=== PATIENT | male | born 1985 | race Caucasian/White ===

== ENCOUNTER 2016-11-27 22:53 | Emergency (ER) | payer BC ==
[~2016-11-27] VITALS: Ht 167.6 cm; Wt 133.4 kg
[~2016-11-27 22:53] MED LIST: AMOX500C2 PO; BREX1TAB PO; CARB100T6 PO; CEPH-507 PO; CEPH500C PO; CYCL10TA9 PO; FAMO20TA5 PO; HYDR-3781 PO; HYDR28CR10 TP; IBP200T PO; IBUP-15 PO; LISD30CA3 PO; LTRS15C TOP; MECL25TA56 PO; NAPR-243 PO; NAPR500T PO; RISP0.5T3 PO; SULF1TAB35 PO; TOPI50TA13 PO; TRM50T PO
--- OUTSIDE RECORDS SUMMARY | 2016-11-27 22:57 | XMS REPORT | Continuity of Care Document ---
Author Author [facility] Organization [facility] Address Unknown Phone Unavailable Care Team Providers Care Delivery Specialist Name Role Phone [facility] OF PCP Insurance Providers Payer Name Policy Number Subscriber Name Relationship Self Pay Melanie Cordero 18 Self / Same As Patient Advance Directives Directive Response Recorded Date/Time Advance Directives No 12/07/14 8:01pm Health Care Power of Line O Scribe Operator No 12/07/14 8:01pm Resuscitation Status Full Code 12/07/14 8:01pm Problems Medical Problems Problem Onset Date Status Abdominal wall pain Unknown Active Chest pain Unknown Active Nausea and vomiting Unknown Active Contusion of both lungs Unknown Active Contusion of rib on left side Unknown Active Abrasion Unknown Active Gastritis Unknown Active Medications Medication Dose Route Sig Days/Qty Instructions Order Date Discontinued Date Status Ibuprofen 4 Tab PO NEEDED 05/17/09 05/07/10 Discontinued Ibuprofen 4 Tab PO NEEDED 05/07/10 12/09/10 Discontinued Cephalexin Monohydrate (Keflex) 1 Each PO FOUR TIMES DAILY 30 Qty 06/0707/31/11 Discontinued Hydrocortisone/Oatmeal/Aloe/E 28.4 Gm TP TWICE A DAY 5 Days 03/20/11 07/31/11 Discontinued Tramadol HCl 50 Mg PO EVERY 8HRS 20 Qty 07/31/11 08/07/13 Discontinued Amoxicillin 1 Each PO THREE TIMES A DAY 30 Qty 02/01/14 05/24/14 Discontinued Naproxen 1 Each PO TWICE A DAY PRN PAIN 20 Qty FOR PAIN 02/01/14 Discontinued Betamethasone/Clotrimazole 0 TOP TWICE A DAY 10 Days 02/01/14 Discontinued Famotidine (Pepcid) 1 Each PO TWICE A DAY 10 Days 12/07/14 Active Social History Social History Problem Response Recorded Date/Time Alcohol Use Occasionally Uses 12/07/2014 8:01pm Recreational Drug Use No 12/07/2014 8:01pm Recent Foreign Travel No 05/24/2014 10:25pm Recent Infectious Disease Exposure No 05/24/2014 10:25pm Hospitalization with Isolation Denies 12/07/2014 7:54pm Smoking Status Never a Smoker 12/07/2014 8:01pm Query Response Start Date Stop Date Smoking Status Never a Smoker Hospital Discharge Instructions No hospital discharge instructions. Plan of Care No plan of care. Functional Status No functional status results. Allergies, Adverse Reactions, Alerts Allergen Type Severity Reaction Status Last Updated NKANo Known Allergies Allergy Mild Active 03/14/09 Immunizations No immunization records. Vital Signs Acute Vital Signs Vital Response Date/Time Temperature (Fahrenheit) 97.8 degrees F (97.6 - 99.5) Temperature (Calculated Celsius) 36.80849 degrees C (36.4 - 37.5) Temperature Source Temporal Pulse Rate (adult) 103 bpm (60 - 90) Respiratory Rate 20 bpm (12 - 24) O2 Sat by Pulse Oximetry 99 % (88 - 100) Blood Pressure 177/99 mm Hg Pain Pain Intensity 8 Height (Feet) 5 feet Height (Inches) 5 inches Height (Calculated Centimeters) 165.589989 cm Weight (Pounds) 265 pounds Weight (Calculated Kilograms) 120.958269 kilograms Calculated BMI 44.09 Results No known relevant diagnostic tests, laboratory data and/or discharge summary. Procedures No known history of procedures. Encounters Encounter Location Date/Time Departed Emergency Room [facility] 12/07/14 7:51pm Recent Diagnosis
[2016-11-27] MEDS ORDERED: AMOX-358 PO (23:13)
[2016-11-27] MEDS ORDERED: FLUT9.9S NS (23:13)
[2016-11-27] MEDS ORDERED: BENZ-13 PO (23:13)
--- NOTE | 2016-11-27 23:14 | ED Cough/URI ---
General Chief Complaint: Cough/Cold/Flu Symptoms Stated Complaint: HEADACHE/CONGESTION/SORE THROAT Nursing Triage Note: PT TO ED 5 W/ FRIEND FOR C/O SNEEZING, SINUS PRESSURE, TRIPP ONSET X1 WK. 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 IN THIS ER A FEW HOURS AGO WITH SAME--LIVES WITH THEM PT IS HERE FOR WORK NOTE--MISSED WORK TODAY--SUPPOSED TO BE AT WORK TODAY AT 3: 00 PM-11:00 PM PCP: LD Allergies and Home Medications Allergies Coded Allergies: GURPREETANo Known Allergies (Unverified Allergy, Mild, 03/14/09) Home Medications Amoxicillin/Potassium Clav 1 Each Tablet #20 1 EACH PO BID Prescribed by: NAEL JEFF on 11/27/162312 Benzonatate 100 Mg Capsule #30 1-2 TAB PO TID Prescribed by: NAEL JEFF on 11/27/162312 Brexpiprazole 1 Mg Tablet #30 1 MG PO DAILY (Reported) Carbamazepine 100 Mg Tab.chew #90 100 MG PO TID (Reported) Cephalexin 500 Mg Capsule #21 500 MG PO TID Prescribed by: KELL BRITT on 06/12/162028 Fluticasone Propionate 9.9 Ml [place].susp #1 2 SPRAYS NS BID Prescribed by: NAEL JEFF on 11/27/162312 Hydroxyzine Pamoate 25 Mg Capsule #90 25 MG PO TID (Reported) Lisdexamfetamine Dimesylate 30 Mg Capsule #30 30 MG PO DAILY (Reported) Risperidone 0.5 Mg Tablet #30 0.5 MG PO HS (Reported) Sulfamethoxazole/Trimethoprim 1 Each Tablet #14 1 EACH PO BID Prescribed by: KELL BRITT on 06/12/162028 Topiramate 50 Mg Tablet #60 50 MG PO UD (Reported) TAKE WITH BREAKFAST AND LUNCH Constitutional: see HPI fever EENTM: nose congestion see HPI throat pain Respiratory: see HPI coughNo short of breath Cardiovascular: no symptoms reported Gastrointestinal: no symptoms reported Genitourinary: no symptoms reported Musculoskeletal: see HPI Skin: no symptoms reported Psychiatric/Neurological: See HPI Headache Hematologic/Lymphatic: No Symptoms Reported Immunological/Allergic: no symptoms reported Past Wxxfwsz-Cjdnwz-Bkbltf Hx Patient Social History Alcohol Use: Denies Use Recreational Drug Use: No Smoking Status: Never a Smoker Recent Foreign Travel: No Contact w/Someone Who Travel: No Recent Infectious Disease Expo: No Recent Hopitalizations: No Immunizations Up To Date Tetanus Booster (TDap): Less than 5yrs Date of Influenza Vaccine: Jun 07, 2016 Seasonal Allergies Seasonal Allergies: Yes Surgeries HX Surgeries: No Respiratory Hx Respiratory Disorders: No Cardiovascular Hx Cardiac Disorders: No Neurological Hx Neurological Disorders: Yes (SEIZURES A CHILD) Reproductive System Hx Reproductive Disorders: No Genitourinary Hx Genitourinary Disorders: No Gastrointestinal Hx Gastrointestinal Disorders: No Musculoskeletal Hx Musculoskeletal Disorders: No Endocrine Hx Endocrine Disorders: No HEENT HX ENT Disorders: No Cancer Hx Cancer: No Psychosocial Hx Psychiatric Problems: Yes (EXTENSIVE PSYCH ISSUES) Behavioral Health Disorders: ADD/ADHD, Anxiety, Bipolar, Depression Integumentary HX Skin/Integumentary Disorder: No Blood Transfusions Hx Blood Disorders: No Family Medical History Significant Family History: Heart Disease, Cancer Physical Exam Vital Signs Vital Sign - Last 12Hours 11/27/16 22:56 Temp 99.2 Pulse 82 Resp 20 B/P 146/80 Pulse Ox 99 O2 Delivery Room Air Capillary Refill : Less Than 3 Seconds General Appearance: WD/WN no apparent distress obese HEENT: PERRL/EOMI pharyngeal erythemaNo tonsillar exudate, other (NASAL MUCOSAL EDEMA AND CLEAR RHINORRHEA. 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 no motor/sensory deficits alert normal mood/affect oriented x 3 Skin: normal color warm/dry Progress/Results/Core Measures Results/Orders My Orders Orders-NAEL JEFF DO Amoxicillin/Clavulanate Tablet (Augmenti (11/28/16 07:00) Benzonatate Capsule (Tessalon Perles) (11/27/16 23:15) Amoxicillin/Clavulanate Tablet (Augmenti (11/27/16 23:15) Vital Signs/I&O Vital Sign - Last 12Hours 11/27/16 11/27/16 22:56 22:56 Temp 99.2 Pulse 82 Resp 20 B/P 146/80 Pulse Ox 99 O2 Delivery Room Air Room Air Blood Pressure Mean: 102 Departure Impression Impression: Primary Impression: Upper respiratory infection Additional Impression: Pharyngitis Disposition: HOME, SELF-CARE Condition: Stable Departure-Patient Inst. Referrals: NO,LOCAL PHYSICIAN (PCP) Primary Care Physician [facility] Patient Instructions: Bacterial Upper Respiratory Infection, Adult (DC), Sore Throat, Adult (DC) Add. Discharge Instructions: TYLENOL 1 GRAM / MOTRIN 800 MG 4 TIMES A DAY FOR PAIN OR FEVER LOTS OF CLEAR LIQUIDS FOLLOW UP WITH [facility] IN 4-5 DAYS IF NO BETTER All discharge instructions reviewed with patient and/or family. Voiced understanding. Scripts Benzonatate (Tessalon Perle)100 Mg Capsule1-2 Tab PO TID Cough #30 CAP Prov:NAEL JEFF DO 11/27/16 Fluticasone Propionate (Flonase Allergy Relief)9.9 Ml [place].susp2 Sprays NS BID #1 SPRAY Prov:NAEL JEFF DO 11/27/16 Amoxicillin/Potassium Clav (Augmentin 875-125 Tablet)1 Each Tablet1 Each PO BID INFECTION #20 TAB Prov:NAEL JEFF DO 11/27/16 Work/School Note: Work Release Form Date Seen in the Emergency Department: Nov 27, 2016 NAEL JEFF DO Nov 27, 2016 23:14
[2016-11-27] MEDS ORDERED: BENZONATATE 100 MG (TESSALON) CAPSULE PO SCH (23:15)
[2016-11-27] MEDS ORDERED: AUGMENTIN 875 MG TAB (AMOXICILLIN/CLAVULANATE) ONE (23:15)
[2016-11-27 23:19] VITALS: BP 0/0
[2016-11-28] MEDS ORDERED: AUGMENTIN 875 MG TAB (AMOXICILLIN/CLAVULANATE) PO SCH (07:00)
== END 2016-11-27 23:19 | disposition home or self-care (01) ==
LOC: EDUNIT# 22:53 → ER 22:54
DX: J06.9 Acute upper respiratory infection, unspecified (principal)
CPT/HCPCS: 99282

== ENCOUNTER 2016-12-21 22:25 | Emergency (ER) | payer BC ==
[~2016-12-21] VITALS: Ht 167.6 cm; Wt 133.4 kg
[~2016-12-21 22:25] MED LIST changes: +AMOX-358 PO; +BENZ-13 PO; +FLUT9.9S NS
[2016-12-21] MEDS ORDERED: NS IV 1000 ML 1,000 ML IV ONE (23:18)
[2016-12-21] MEDS ORDERED: HYOSCYAMINE 0.125 MG (LEVSIN) TAB SL ONE (23:30)
[2016-12-21] MEDS ORDERED: ONDANSETRON 4 MG/2 ML (SDV) Z0FRAN IVP ONE (23:30)
[2016-12-21] MEDS ORDERED: FAMOTIDINE 20MG/2ML IV (PEPCID) IVP ONE (23:30)
[2016-12-21 23:46] LABS: BASOPHILS % (AUTO) 0 % (0-10); EOSINOPHILS # (AUTO) 0.2 10^3/uL (0.0-0.3); EOSINOPHILS % (AUTO) 2 % (0-10); LYMPHOCYTES # (AUTO) 1.3 X 10^3 (1.0-4.0); LYMPHOCYTES % (AUTO) 21 % (12-44); MEAN CORPUSCULAR HEMOGLOBIN 31 PG (25-34); MEAN CORPUSCULAR HGB CONC 35 G/DL (32-36); MEAN CORPUSCULAR VOLUME 87 FL (80-99); MONOCYTES # (AUTO) 0.7 X 10^3 (0.0-1.0); MONOCYTES % (AUTO) 11 % (0-12); NEUTROPHILS # (AUTO) 4.3 X 10^3 (1.8-7.8); NEUTROPHILS % (AUTO) 66 % (42-75); PLATELET COUNT 164 10^3/uL (130-400); RED BLOOD COUNT 5.57 10^6/uL (4.35-5.85); RED CELL DISTRIBUTION WIDTH 12.8 % (10.0-14.5); WHITE BLOOD COUNT 6.5 10^3/uL (4.3-11.0)
[2016-12-22 00:04] LABS: ALANINE AMINOTRANSFERASE 22 U/L (0-55); ALBUMIN 4.1 G/DL (3.2-4.5); ANION GAP 10 MMOL/L (5-14); ASPARTATE AMINO TRANSFERASE 17 U/L (5-34); BILIRUBIN,TOTAL 0.8 MG/DL (0.1-1.0); BLOOD UREA NITROGEN 16 MG/DL (7-18); BUN/CREATININE RATIO 19; CARBON DIOXIDE 24 MMOL/L (21-32); CHLORIDE 105 MMOL/L (98-107); CREATININE SERUM 0.85 MG/DL (0.60-1.30); GFR ESTIMATED > 60; GLUCOSE 84 MG/DL (70-105); LIPASE 22 U/L (8-78); SODIUM 139 MMOL/L (135-145); TOTAL PROTEIN 7.8 G/DL (6.4-8.2)
[2016-12-22] MEDS ORDERED: KETOROLAC 30 MG/ML VIAL IVP ONE (00:30)
[2016-12-22] MEDS ORDERED: RX-ONDANSETRON 4 MG ODT (ZOFRAN) PPK #4 SL STA (00:37)
--- NOTE | 2016-12-22 00:43 | ED GI ---
General Chief Complaint: Abdominal/GI Problems Stated Complaint: ABD PAIN/VOMITING/DIARRHEA Nursing Triage Note: PT C/O DIFFUSE ABD PAIN AND N/V/D AT 0130 THIS AM. Sepsis Screen: No Definite Risk Source of Information: Patient Exam Limitations: No Limitations History of Present Illness Time Seen By Provider: 23:10 Initial Comments This 31-year-old young man presents to emergency room with complaints of generalized abdominal pain, nausea, vomiting, diarrhea, and abdominal cramping that started early in the morning around 01:30. Pain is relatively constant and reported as 7/10. The last oral intake was about 2 hours ago and was chicken. This resulted in vomiting. He believes there might of been a small amount of blood in his emesis. He took Pepto-Bismol tabs without benefit. Vital signs are within normal limits. Allergies and Home Medications Allergies Coded Allergies: GURPREETANo Known Allergies (Unverified Allergy, Mild, 03/14/09) Home Medications Amoxicillin/Potassium Clav 1 Each Tablet, 1 EACH PO BID, #20 Prescribed by: NAEL JEFF on 11/27/162312 Benzonatate 100 Mg Capsule, 1-2 TAB PO TID, #30 Prescribed by: NAEL JEFF on 11/27/162312 Brexpiprazole 1 Mg Tablet, 1 MG PO DAILY, #30 (Reported) Carbamazepine 100 Mg Tab.chew, 100 MG PO TID, #90 (Reported) Cephalexin 500 Mg Capsule, 500 MG PO TID, #21 Prescribed by: KELL BRITT on 06/12/162028 Fluticasone Propionate 9.9 Ml [place].susp, 2 SPRAYS NS BID, #1 Prescribed by: NAEL JEFF on 11/27/162312 Hydroxyzine Pamoate 25 Mg Capsule, 25 MG PO TID, #90 (Reported) Lisdexamfetamine Dimesylate 30 Mg Capsule, 30 MG PO DAILY, #30 (Reported) Risperidone 0.5 Mg Tablet, 0.5 MG PO HS, #30 (Reported) Sulfamethoxazole/Trimethoprim 1 Each Tablet, 1 EACH PO BID, #14 Prescribed by: KELL BRITT on 06/12/162028 Topiramate 50 Mg Tablet, 50 MG PO UD, #60 (Reported) TAKE WITH BREAKFAST AND LUNCH Review of Systems Constitutional: no symptoms reported EENTM: No Symptoms Reported Respiratory: No Symptoms Reported Cardiovascular: No Symptoms Reported Gastrointestinal: See HPI Genitourinary: No Symptoms Reported Musculoskeletal: no symptoms reported Skin: no symptoms reported Psychiatric/Neurological: No Symptoms Reported Endocrine: No Symptoms Reported Past Lygmzjt-Keiwwc-Rgeuqm Hx Patient Social History Alcohol Use: Denies Use Recreational Drug Use: No Smoking Status: Never a Smoker 2nd Hand Smoke Exposure: No Recent Foreign Travel: No Contact w/Someone Who Travel: No Recent Infectious Disease Expo: No Recent Hopitalizations: No Immunizations Up To Date Tetanus Booster (TDap): Less than 5yrs Date of Influenza Vaccine: Jun 07, 2016 Seasonal Allergies Seasonal Allergies: Yes Surgeries HX Surgeries: No Respiratory Hx Respiratory Disorders: No Cardiovascular Hx Cardiac Disorders: No Neurological Hx Neurological Disorders: Yes (SEIZURES A CHILD) Reproductive System Hx Reproductive Disorders: No Genitourinary Hx Genitourinary Disorders: No Gastrointestinal Hx Gastrointestinal Disorders: No Musculoskeletal Hx Musculoskeletal Disorders: No Endocrine Hx Endocrine Disorders: No HEENT HX ENT Disorders: No Cancer Hx Cancer: No Psychosocial Hx Psychiatric Problems: Yes (EXTENSIVE PSYCH ISSUES) Behavioral Health Disorders: ADD/ADHD, Anxiety, Bipolar, Depression Integumentary HX Skin/Integumentary Disorder: No Blood Transfusions Hx Blood Disorders: No Family Medical History Significant Family History: Heart Disease, Cancer Physical Exam Vital Signs VS - Last 72 Hours, by Label 12/21/16 23:09 Temp 98.9 Pulse 83 Resp 18 B/P (MAP) 140/74 Pulse Ox 99 O2 Delivery Room Air Capillary Refill : Less Than 3 Seconds General Appearance: WD/WN, no apparent distress, obese HEENT: PERRL/EOMI, normal ENT inspection, pharynx normal Neck: normal inspection Respiratory: lungs clear, normal breath sounds, no respiratory distress, no accessory muscle use Cardiovascular: regular rate, rhythm, no edema, no murmur Gastrointestinal: normal bowel sounds, soft, tenderness (generalized upper abdomen) Extremities: normal inspection, no pedal edema 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, no motor/sensory deficits, alert, normal mood/affect, oriented x 3 Skin: normal color, warm/dry Progress/Results/Core Measures Results/Orders Lab Results Laboratory Tests Test 12/21/16 23:38 Range/Units White Blood Count 6.5 4.3-11.0 10^3/uL Red Blood Count 5.57 4.35-5.85 10^6/uL Hemoglobin 17.0 13.3-17.7 G/DL Hematocrit 48 40-54 % Mean Corpuscular Volume 87 80-99 FL Mean Corpuscular Hemoglobin 31 25-34 PG Mean Corpuscular Hemoglobin Concent 35 32-36 G/DL Red Cell Distribution Width 12.8 10.0-14.5 % Platelet Count 164 130-400 10^3/uL Mean Platelet Volume 11.0 H 7.4-10.4 FL Neutrophils (%) (Auto) 66 42-75 % Lymphocytes (%) (Auto) 21 12-44 % Monocytes (%) (Auto) 11 0-12 % Eosinophils (%) (Auto) 2 0-10 % Basophils (%) (Auto) 0 0-10 % Neutrophils # (Auto) 4.3 1.8-7.8 X 10^3 Lymphocytes # (Auto) 1.3 1.0-4.0 X 10^3 Monocytes # (Auto) 0.7 0.0-1.0 X 10^3 Eosinophils # (Auto) 0.2 0.0-0.3 10^3/uL Basophils # (Auto) 0.0 0.0-0.1 10^3/uL Sodium Level 139 135-145 MMOL/L Potassium Level 4.0 3.6-5.0 MMOL/L Chloride Level 105 98-107 MMOL/L Carbon Dioxide Level 24 21-32 MMOL/L Anion Gap 10 5-14 MMOL/L Blood Urea Nitrogen 16 7-18 MG/DL Creatinine 0.85 0.60-1.30 MG/DL Estimat Glomerular Filtration Rate > 60 BUN/Creatinine Ratio 19 Glucose Level 84 70-105 MG/DL Calcium Level 9.0 8.5-10.1 MG/DL Total Bilirubin 0.8 0.1-1.0 MG/DL Aspartate Amino Transf (AST/SGOT) 17 5-34 U/L Alanine Aminotransferase (ALT/SGPT) 22 0-55 U/L Alkaline Phosphatase 57 40-136 U/L Total Protein 7.8 6.4-8.2 G/DL Albumin 4.1 3.2-4.5 G/DL Lipase 22 8-78 U/L My Orders Orders - SUSAN DAWKINS MD Cbc With Automated Diff (12/21/16 23:18) Comprehensive Metabolic Panel (12/21/16 23:18) Lipase (12/21/16 23:18) Saline Lock/Iv-Start (12/21/16 23:18) Ns Iv 1000 Ml (Sodium Chloride 0.9%) (12/21/16 23:18) Ondansetron Injection (Zofran Injectio (12/21/16 23:30) Famotidine Injection (Pepcid Injection) (12/21/16 23:30) Hyoscyamine Sl Tablet (Levsin Sl Tablet) (12/21/16 23:30) Ketorolac Injection (Toradol Injection) (12/22/16 00:30) Rx-Ondansetron Po (Rx-Zofran Po) (12/22/16 00:37) Medications Given in ED Current Medications Medications Dose Ordered Sig/Ye Route Start Time Stop Time Status Last Admin Dose Admin Famotidine 20 mg ONCE ONCE IVP 12/21/16 23:30 12/21/16 23:31 DC 12/21/16 23:53 20 MG Hyoscyamine Sulfate 0.25 mg ONCE ONCE SL 12/21/16 23:30 12/21/16 23:31 DC 12/21/16 23:53 0.25 MG Ketorolac Tromethamine 30 mg ONCE ONCE IVP 12/22/16 00:30 12/22/16 00:31 DC 12/22/16 00:33 30 MG Ondansetron HCl 8 mg ONCE ONCE IVP 12/21/16 23:30 12/21/16 23:31 DC 12/21/16 23:53 8 MG Sodium Chloride 1,000 ml @ 0 mls/hr Q0M ONCE IV 12/21/16 23:18 12/21/16 23:21 DC 12/21/16 23:54 0 MLS/HR Vital Signs/I&O Vital Sign - Last 12Hours 12/21/16 23:09 Temp 98.9 Pulse 83 Resp 18 B/P (MAP) 140/74 Pulse Ox 99 O2 Delivery Room Air Blood Pressure Mean: 96 Progress Note : Progress Note Patient was treated with a liter of IV fluids, Levsin, Zofran, and Pepcid. This resolved his nausea but not his pain. Pain was further treated with Toradol. Labs were unremarkable. Patient had no focal tenderness to suggest appendicitis, cholecystitis, or other focal pathology. He was tolerating oral water prior to dismissal. A take-home pack of Zofran was dispensed. Departure Impression Impression: Primary Impression: Nausea vomiting and diarrhea Additional Impression: Generalized abdominal pain Disposition: 01 HOME, SELF-CARE Condition: Improved Departure-Patient Inst. Decision time for Depature: 00:30 Referrals: [facility] (PCP/Family) Primary Care Physician Patient Instructions: Acute Abdomen (Belly Pain), Adult (DC), Nausea and Vomiting, Adult Add. Discharge Instructions: Drink plenty of clear liquids. You may take Tylenol (acetaminophen) up to 1000 mg every 6 hours as needed for pain. Use Zofran (ondansetron) dissolved under the tongue every 4 hours as needed for nausea. Gradually advance your diet with small quantities of bland food as tolerated. Return to the emergency room if symptoms worsen or do not continue to improve. Follow-up with your primary care provider if symptoms do not resolve by tomorrow. All discharge instructions reviewed with patient and/or family. Voiced understanding. Work/School Note: Work Release Form Date Seen in the Emergency Department: Dec 21, 2016 Return to Work: Dec 22, 2016 Restrictions: No Restrictions Restrictions: May return to work night of December 22 SUSAN DAWKINS MD Dec 22, 2016 00:43
[2016-12-22 00:55] VITALS: BP 135/76
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
== END 2016-12-22 00:55 | disposition home or self-care (01) ==
LOC: EDUNIT# 22:25 → ER 22:27
DX: R11.2 Nausea with vomiting, unspecified (principal); R19.7 Diarrhea, unspecified; R10.84 Generalized abdominal pain
CPT/HCPCS: 36415; 80053; 83690; 85025; 96361; 96374; 96375

== ENCOUNTER → 2018-02-11 | Outpatient (CLI) | payer BC ==
[~2018-02-11] MED LIST changes: +BARIUM SUSPENSION 105% (LIQUID POLIBAR PLUS) 240 ML/DOSE PO ONE; +BARIUM SUSPENSION 60% (LIQUID EZ PAQUE) 240 ML DOSE PO ONE; +NAPR-1071 PO; -NAPR500T PO
--- NOTE | 2018-02-11 13:03 | Diagnostic Imaging Report ---
INDICATION: Preop for gastric surgery. TECHNIQUE: The patient ingested effervescent crystals as well as thin and thick barium and imaging of the esophagus, stomach, and proximal duodenum was performed. A total of 1 minute and 16 seconds of fluoroscopy was utilized. FINDINGS: The preliminary radiograph is unremarkable. The esophagus has a smooth contour. No mass or stricture is identified. The stomach has a normal configuration. There is prompt emptying into the small bowel. The proximal small bowel loops are unremarkable. IMPRESSION: Unremarkable upper GI study. Dictated by: Dictated on workstation # [id number]
== END ==
LOC: RAD 10:48
PROVIDERS: ATTEND Surgery
DX: Z01.818 Encounter for other preprocedural examination (principal); K21.9 Gastro-esophageal reflux disease without esophagitis
CPT/HCPCS: 74241

== ENCOUNTER 2018-02-22 13:00 | Outpatient (CLI) | payer BC ==
[~2018-02-22 13:00] MED LIST changes: -BARIUM SUSPENSION 105% (LIQUID POLIBAR PLUS) 240 ML/DOSE PO ONE; -BARIUM SUSPENSION 60% (LIQUID EZ PAQUE) 240 ML DOSE PO ONE
== END 2018-02-22 13:30 | disposition home or self-care (01) ==
LOC: SLEEP 13:00
PROVIDERS: ATTEND Surgery
DX: G47.33 Obstructive sleep apnea (adult) (pediatric) (principal); R06.83 Snoring

== ENCOUNTER 2018-07-27 21:14 | Emergency (ER) | payer BC, OTHER ==
[~2018-07-27] VITALS: Ht 165.1 cm; Wt 133.8 kg
[~2018-07-27 21:14] MED LIST changes: -BENZ-13 PO; +BENZ100C18 PO
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
[2018-07-27] MEDS ORDERED: CETI10TA20 PO (21:39)
[2018-07-27] MEDS ORDERED: IBUP200C11 PO (21:40)
[2018-07-27] MEDS ORDERED: diphenhydrAMINE 25 MG TAB (BENADRYL) PO ONE (21:45)
[2018-07-27] MEDS ORDERED: PROCHLORPERAZINE 10 MG/2ML INJ (COMPAZINE) IM ONE (21:45)
[2018-07-27] MEDS ORDERED: KETOROLAC 60 MG/2 ML VIAL IM ONE (21:45)
--- NOTE | 2018-07-27 21:51 | ED Headache ---
General Chief Complaint: Head/Cervical Problems Stated Complaint: HEAD PAIN Nursing Triage Note: PATIENT AMBULATORY TO ER ROOM 6 WITH COMPLAINT OF HEADACHE X 1 WEEK. PATIENT ALSO COMPLAINING OF INTERMITTENT NAUSEA WITH NO VOMITING. PATIENT STATES HE HAS A SMALL KNOT ON THE RIGHT SIDE OF HIS HEAD THAT HAS BEEN PRESENT FOR THE LAST WEEK. HE DENIES ANY RECENT INJURIES. THE KNOT IS TENDER TO PALPATION. HE IS COMPLAINING OF LIGHT SENSATIVITY. HE HAS TAKEN ADVIL LIQUID GELS TODAY WITH NO RELIEF TO THE PAIN. Nursing Sepsis Screen: No Definite Risk Source: patient Exam Limitations: no limitations History of Present Illness Date Seen by Provider: Jul 27, 2018 Time Seen by Provider: 21:15 Initial Comments The patient is a 33 year old male who presents to the emergency room accompanied by his for reports of headache and intermittent nausea for the past week. He also report a tender soft knot on the right side of his head that comes and goes for the past week. Reports taking 200mg of Ibuprofen with out relief. Denies injury or vomiting. Timing/Duration: 1 week Severity/Quality: mild Location: temporal (right ) Prior Headaches/Recent Trauma: no recent headache/trauma, occasional headaches Associated Symptoms: nausea/vomiting Allergies and Home Medications Allergies Coded Allergies: NKANo Known Allergies (Unverified Allergy, Mild, 03/14/09) Home Medications Cetirizine HCl 10 Mg Tablet, 10 MG PO DAILY, (Reported) Ibuprofen 200 Mg Capsule, 200 MG PO BID PRN, (Reported) Patient Home Medication List Home Medication List Reviewed: Yes Review of Systems Review of Systems Constitutional: no symptoms reported, see HPI Eyes: See HPI, Photophobia Gastrointestinal: see HPI, nausea Psychiatric/Neurological: See HPI, Headache All Other Systems Reviewed Negative Unless Noted: Yes Past Ccefeen-Efctxf-Vtvlnl Hx Past Med/Social Hx: Reviewed Nursing Past Med/Soc Hx Patient Social History Alcohol Use: Occasionally Uses Number of Drinks Today: 2 Alcohol Beverage of Choice: Beer Recreational Drug Use: No Smoking Status: Never a Smoker 2nd Hand Smoke Exposure: No Recent Foreign Travel: No Contact w/Someone Who Travel: No Recent Infectious Disease Expo: No Recent Hopitalizations: No Physical Abuse: No Sexual Abuse: No Mistreated: No Fear: No Immunizations Up To Date Tetanus Booster (TDap): Less than 5yrs Date of Influenza Vaccine: Jun 07, 2016 Seasonal Allergies Seasonal Allergies: Yes Past Medical History Surgeries: No Respiratory: No Cardiac: No Neurological: Yes (SEIZURES A CHILD) Headaches /Migraines Reproductive Disorders: No Genitourinary: No Gastrointestinal: No Musculoskeletal: No Endocrine: No HEENT: No Cancer: No Psychosocial: Yes (EXTENSIVE PSYCH ISSUES) ADD/ADHD, Anxiety, Bipolar, Depression Integumentary: No Blood Disorders: No Family Medical History Reviewed Nursing Family Hx Heart Disease, Cancer Physical Exam Vital Signs Vital Signs - First Documented 07/27/18 07/27/18 21:15 22:23 Temp 98.4 Pulse 64 Resp 16 B/P (MAP) 138/71 (93) Pulse Ox 97 O2 Delivery Room Air Capillary Refill : Less Than 3 Seconds Height, Weight, BMI Height: 5'5.00" Weight: 295lbs. oz. 133.550521ls; 47.42 BMI Method:Stated General Appearance: WD/WN, no apparent distress HEENT: PERRL/EOMI, normal ENT inspection, TMs normal, pharynx normal Neck: non-tender, full range of motion, supple, normal inspection Cardiovascular: normal peripheral pulses, regular rate, rhythm, no edema, no gallop, no JVD, no murmur Respiratory: chest non-tender, lungs clear, normal breath sounds, no respiratory distress, no accessory muscle use Gastrointestinal: normal bowel sounds, non tender, soft, no organomegaly, no pulsatile mass Extremities: normal capillary refill Psychiatric: alert, oriented x 3 Coordination/Gait: normal finger to nose Motor/Sensory: no motor deficit, no sensory deficit Skin: normal color, warm/dry Progress/Results/Core Measures Results/Orders My Orders Orders - GARETT KRISHNAMURTHY Diphenhydramine Tablet (Benadryl Tablet) (07/27/18 21:45) Ketorolac Injection (Toradol Injection) (07/27/18 21:45) Prochlorperazine Injection (Compazine In (07/27/18 21:45) Ct Head Wo (07/27/18 21:37) Medications Given in ED Current Medications Medications Dose Ordered Sig/Ye Route Start Time Stop Time Status Last Admin Dose Admin Diphenhydramine HCl 50 mg ONCE ONCE PO 07/27/18 21:45 07/27/18 21:46 DC 07/27/18 21:44 50 MG Ketorolac Tromethamine 60 mg ONCE ONCE IM 07/27/18 21:45 07/27/18 21:46 DC 07/27/18 21:48 60 MG Prochlorperazine Edisylate 10 mg ONCE ONCE IM 07/27/18 21:45 07/27/18 21:46 DC 07/27/18 21:45 10 MG Vital Signs/I&O 07/27/18 07/27/18 21:15 22:23 Temp 98.4 98.0 Pulse 64 69 Resp 16 B/P (MAP) 138/71 (93) 126/71 (89) Pulse Ox 97 O2 Delivery Room Air Room Air Blood Pressure Mean: 93 Progress Progress Note : Time: 22:10 Progress Note I have seen and evaluated the patient. I have informed him of normal imaging studies. He agrees with plan of care, plans for discharge, return precautions were given. Diagnostic Imaging Diagonstic Imaging: CT Plain Films/CT/US/NM/MRI: head Comments NAME: MELANIE CAMARA MED REC#: [id number] PHYSICIAN: GARETT KRISHNAMURTHY CC: GARETT KRISHNAMURTHY; WATSON OJEDA MD Page 1 of 1 RADIOLOGY REPORT [place] CC: GARETT KRISHNAMURTHY; WATSON OJEDA MD Page 1 of 1 RADIOLOGY REPORT NAME: MELANIE CAMARA MED REC#: [id number] PT STATUS: REG ER : 1985 PHYSICIAN: GARETT KRISHNAMURTHY ADMIT DATE: 07/27/18/ER Signed Date of Exam: 07/27/18 CT HEAD WO PROCEDURE: CT head without contrast. TECHNIQUE: Multiple contiguous axial images were obtained through the brain without the use of intravenous contrast. INDICATION: Headache. COMPARISON: Study of 12/09/2010. CT HEAD: Multiple contiguous axial CT images of the head were obtained. FINDINGS: Ventricles and sulci are within normal limits for size. There is no intracranial hemorrhage identified. There is no abnormal mass effect or shift of midline structures. IMPRESSION: Unremarkable CT of the head. Dictated by: Dictated on workstation # [id number] Dict: 07/27/182155 Trans: 07/27/182158 Interpreted by: WATSON OJEDA MD Electronically signed by: WATSON OJEDA MD 07/27/18 2159 Reviewed: Reviewed by Me Departure Impression Primary Impression: Headache Disposition: 01 HOME, SELF-CARE Condition: Stable/Unchanged Departure-Patient Inst. Decision time for Depature: 22:14 Referrals: NATHAN ELLIS MD (PCP/Family) Primary Care Physician Patient Instructions: Headache, Adult (DC) Add. Discharge Instructions: You may use ibuprofen and Tylenol as directed by the bottle for pain relief. Follow-up with your doctor within 1 week for recheck. Return back to the emergency room for any worsening symptoms or concerns as needed. All discharge instructions reviewed with patient and/or family. Voiced understanding. GARETT KRISHNAMURTHY Jul 27, 2018 21:51
--- NOTE | 2018-07-27 21:59 | Diagnostic Imaging Report ---
PROCEDURE: CT head without contrast. TECHNIQUE: Multiple contiguous axial images were obtained through the brain without the use of intravenous contrast. INDICATION: Headache. COMPARISON: Study of 12/09/2010. CT HEAD: Multiple contiguous axial CT images of the head were obtained. FINDINGS: Ventricles and sulci are within normal limits for size. There is no intracranial hemorrhage identified. There is no abnormal mass effect or shift of midline structures. IMPRESSION: Unremarkable CT of the head. Dictated by: Dictated on workstation # [id number]
[2018-07-27 22:23] VITALS: BP 126/71
== END 2018-07-27 22:25 | disposition home or self-care (01) ==
LOC: EDUNIT# 21:14 → ER 21:15
DX: R51 Headache (principal); F90.9 Attention-deficit hyperactivity disorder, unspecified type; F41.9 Anxiety disorder, unspecified; F31.9 Bipolar disorder, unspecified; Z82.49 Family history of ischemic heart disease and other diseases of the circulatory system
CPT/HCPCS: 70450; 96372

== ENCOUNTER 2018-11-30 16:18 | Emergency (ER) | payer BC, OTHER ==
[~2018-11-30] VITALS: Ht 165.1 cm; Wt 133.8 kg
[~2018-11-30 16:18] MED LIST changes: +CETI10TA20 PO; +IBUP200C11 PO
--- OUTSIDE RECORDS SUMMARY | 2018-11-30 16:23 | XMS REPORT | Continuity of Care Document ---
Author Author [facility] Address Unknown Phone Unavailable Allergies Active [...] Ot R19.7 DIARRHEA, UNSPECIFIED 06/12/2016 KELL BRITT CONCRETE BLOCK LAYER Ot L03.114 CELLULITIS OF LEFT UPPER LIMB 06/12/2016 KELL BRITT CONCRETE BLOCK LAYER Ot R07.89 OTHER CHEST PAIN 06/12/2016 KELL BRITT CONCRETE BLOCK LAYER Ot R42 DIZZINESS AND GIDDINESS 06/12/2016 KELL BRITT CONCRETE BLOCK LAYER Ot T67.5XXA HEAT EXHAUSTION, UNSPECIFIED, INITIAL EN 06/14/2016 KELL BRITT CONCRETE BLOCK LAYER Ot L03.114 CELLULITIS OF LEFT UPPER LIMB 06/14/2016 KELL BRITT CONCRETE BLOCK LAYER Ot R07.89 OTHER CHEST PAIN 06/14/2016 KELL BRITT CONCRETE BLOCK LAYER Ot R42 DIZZINESS AND GIDDINESS 06/14/2016 KELL BRITT CONCRETE BLOCK LAYER Ot T67.5XXA HEAT EXHAUSTION, UNSPECIFIED, INITIAL EN [...] G47.33 OBSTRUCTIVE SLEEP APNEA (ADULT) (PEDIATR 02/22/2018 KERRIE LARIOS, PAOLA Ot R06.83 SNORING 02/25/2018 KERRIE LARIOS, PAOLA Ot G47.33 OBSTRUCTIVE SLEEP APNEA (ADULT) (PEDIATR 02/25/2018 KERRIE LARIOS, PAOLA Ot R06.83 SNORING 02/28/2018 KERRIE LARIOS, PAOLA Ot K21.9 GASTRO-ESOPHAGEAL REFLUX DISEASE WITHOUT 02/28/2018 PAOLA SY MD Ot Z01.818 ENCOUNTER FOR OTHER PREPROCEDURAL EXAMIN 06/05/2018 Ot 780.39 OTHER CONVULSIONS 06/05/2018 GELLENDER DOSAY Ot R56.9 UNSPECIFIED CONVULSIONS 06/05/2018 PAOLA SY MD Ot K21.9 GASTRO-ESOPHAGEAL REFLUX DISEASE WITHOUT 06/05/2018 PAOLA SY MD Ot Z01.818 ENCOUNTER FOR OTHER PREPROCEDURAL EXAMIN 06/05/2018 Ot 780.39 OTHER CONVULSIONS 06/05/2018 SAMMY DOSAY Ot R56.9 UNSPECIFIED CONVULSIONS 06/05/2018 PAOLA SY MD Ot K21.9 GASTRO-ESOPHAGEAL REFLUX DISEASE WITHOUT 06/05/2018 PAOLA SY MD Ot Z01.818 ENCOUNTER FOR OTHER PREPROCEDURAL EXAMIN 07/01/2018 SAMMY DOSAY Ot R56.9 UNSPECIFIED CONVULSIONS 07/01/2018 PAOLA SY MD Ot K21.9 GASTRO-ESOPHAGEAL REFLUX DISEASE WITHOUT 07/01/2018 PAOLA SY MD Ot Z01.818 ENCOUNTER FOR OTHER PREPROCEDURAL EXAMIN 07/27/2018 GARETT KRISHNAMURTHY Ot F31.9 BIPOLAR DISORDER, UNSPECIFIED 07/27/2018 BERNARETHA BUNCHIS Ot F41.9 ANXIETY DISORDER, UNSPECIFIED 07/27/2018 BERNARETHA BUNCHIS Ot F90.9 ATTENTION-DEFICIT HYPERACTIVITY DISORDER 07/27/2018 ARETHA KRISHNAMURTHYIS Ot R51 HEADACHE 07/27/2018 ARETHA KRISHNAMURTHYIS Ot Z82.49 FAMILY HX OF ISCHEM HEART DIS AND OTH DI 07/29/2018 GARETT KRISHNAMURTHY Ot F31.9 BIPOLAR DISORDER, UNSPECIFIED 07/29/2018 ARETHA KRISHNAMURTHYIS Ot F41.9 ANXIETY DISORDER, UNSPECIFIED 07/29/2018 ARETHA KRISHNAMURTHYIS Ot F90.9 ATTENTION-DEFICIT HYPERACTIVITY DISORDER 07/29/2018 GARETT KRISHNAMURTHY Ot R51 HEADACHE 07/29/2018 GARETT KRISHNAMURTHY Ot Z82.49 FAMILY HX OF ISCHEM HEART DIS AND OTH DI Procedures There is no data. Results Test [...] Status Pt. Type Provider Facility Loc./Unit Complaint [id number] 11/05/2013 15:23:00 11/05/2013 23:59:59 CLS Outpatient CHARLIE TUTTLE APRN [id number] 07/04/2010 16:23:00 07/04/2010 23:59:59 CLS Outpatient JOY LARIOS, ALICIA [id number] 07/27/2018 21:15:00 07/27/2018 22:25:00 DIS Emergency GARETT KRISHNAMURTHY [facility] ER HEAD PAIN [id number] 02/22/2018 13:00:00 02/22/2018 13:30:00 DIS Outpatient PAOLA SY MD [facility] SLEEP G47.33 ZHANG [id number] 02/11/2018 10:48:00 02/11/2018 23:59:59 CLS Outpatient PAOLA SY MD [facility] RAD REFLUX [id number] 07/29/2017 13:15:00 07/29/2017 17:19:00 DIS Emergency KULWANT LARIOS, NIKO Beltrán [facility] ER CP [id number] 12/21/2016 22:27:00 12/22/2016 00:55:00 DIS Emergency SUSAN DAWKINS MD [facility] ER ABD PAIN/VOMITING/ DIARRHEA [id number] 11/27/2016 22:54:00 11/27/2016 23:19:00 DIS Emergency NAEL JEFF DO [facility] ER HEADACHE/CONGESTION/SORE THROAT [id number] 08/24/2016 23:21:00 08/24/2016 23:39:00 DIS Emergency JANET CHACKO MD [facility] ER SORE THROAT,COUGHING, CONGESTION [id number] 07/03/2016 08:18:00 07/03/2016 23:59:59 CLS Outpatient SAY CHRISTIANSON DO [facility] RT SEIZURE HISTORY [id number] 06/12/2016 18:18:00 06/12/2016 20:53:00 DIS Emergency KELL BRITT APRN [facility] ER CHEST TIGHTNESS/ DISORIENTED [id number] 01/10/2016 23:13:00 01/11/2016 00:25:00 DIS Emergency JANET CHACKO MD [facility] ER FLU SYMPTOMS,V/N/D [id number] 12/16/2015 02:16:00 12/16/2015 03:40:00 DIS Emergency JANET CHACKO MD [facility] ER MIGRAINE [id number] 08/30/2015 01:10:00 08/30/2015 05:20:00 DIS Emergency SUSAN DAWKINS MD [facility] ER CP [id number] 05/24/2014 22:22:00 05/24/2014 23:37:00 DIS Emergency JANET CHACKO MD [facility] ER FALL [id number] 02/01/2014 18:20:00 02/01/2014 18:48:00 DIS Emergency KELL BRITT APRN [facility] ER MULTIPLE COMPLAINTS [id number] 08/07/2013 16:48:00 08/07/2013 20:50:00 DIS Emergency JANET CHACKO MD [facility] ER VOMITING BLOOD [id number] 06/05/2018 06:32:00 Document Registration [id number] 12/07/2014 19:51:00 Document Registration [id number] 05/17/2012 15:24:00 Document Registration [id number] 07/31/2011 19:25:00 Document Registration [id number] 03/19/2011 22:20:00 Document Registration [id number] 12/09/2010 02:25:00 Document Registration [id number] 07/11/2010 09:42:00 Document Registration [id number] 06/06/2010 22:01:00 Document Registration [id number] 05/07/2010 03:04:00 Document Registration [id number] 04/20/2010 20:20:00 Document Registration [id number] 05/17/2009 20:31:00 Document Registration [id number] 03/14/2009 23:11:00 Document Registration [id number] 03/21/2018 09:00:00 03/21/2018 23:59:59 [facility]
--- NOTE | 2018-11-30 16:37 | ED Lower Extremity ---
General Chief Complaint: Lower Extremity Stated Complaint: INJ KNEE STEPPINT OFF CURB Nursing Triage Note: TO TRIAGE WITH COMPLAINTS OF RIGHT KNEE PAIN AFTER SLIPPING OFF CURB LAST NIGHT. Nursing Sepsis Screen: No Definite Risk Source: patient Exam Limitations: no limitations History of Present Illness Date Seen by Provider: Nov 30, 2018 Time Seen by Provider: 16:35 Initial Comments 33-year-old male who presents to the emergency room with complaints of right knee pain after slipping off of the curb and falling to the ground last night while leaving the bar. He reports that he was intoxicated and did not think anything of it but this morning when he woke up he started to have worsening pain. He denies hitting his head or other injuries from the fall. He has been ambulating on the knee without difficulty throughout the day. Onset: yesterday Pain/Injury Location: right knee Method of Injury: fell, twisted Modifying Factors: Worse With Movement Allergies and Home Medications Allergies Coded Allergies: NKANo Known Allergies (Unverified Allergy, Mild, 03/14/09) Home Medications No Active Prescriptions or Reported Meds Patient Home Medication List Home Medication List Reviewed: Yes Review of Systems Constitutional: no symptoms reported, see HPI Musculoskeletal: see HPI, joint pain (right knee) All Other Systems Reviewed Negative Unless Noted: Yes Past Pchygzd-Hcyqfi-Uycqcz Hx Past Med/Social Hx: Reviewed Nursing Past Med/Soc Hx Patient Social History Alcohol Use: Occasionally Uses Alcohol Beverage of Choice: Beer Recreational Drug Use: No 2nd Hand Smoke Exposure: No Recent Foreign Travel: No Contact w/Someone Who Travel: No Recent Infectious Disease Expo: No Recent Hopitalizations: No Immunizations Up To Date Tetanus Booster (TDap): Less than 5yrs Date of Influenza Vaccine: Jun 07, 2016 Seasonal Allergies Seasonal Allergies: Yes Past Medical History Surgeries: No Respiratory: No Cardiac: No Neurological: Yes (SEIZURES A CHILD) Headaches /Migraines Reproductive Disorders: No Genitourinary: No Gastrointestinal: No Musculoskeletal: No Endocrine: No HEENT: No Cancer: No Psychosocial: Yes (EXTENSIVE PSYCH ISSUES) ADD/ADHD, Anxiety, Bipolar, Depression Integumentary: No Blood Disorders: No Family Medical History Reviewed Nursing Family Hx Heart Disease, Cancer Physical Exam Vital Signs Vital Signs - First Documented 11/30/18 16:24 Temp 98.0 Pulse 83 Resp 16 B/P (MAP) 154/90 (111) Pulse Ox 99 O2 Delivery Room Air Capillary Refill : Less Than 3 Seconds Height, Weight, BMI Height: 5'5.00" Weight: 295lbs. oz. 133.241943hm; 47.42 BMI Method:Stated General Appearance: WD/WN, no apparent distress Cardiovascular: normal peripheral pulses, regular rate, rhythm, no edema, no gallop, no JVD, no murmur Respiratory: chest non-tender, lungs clear, normal breath sounds, no respiratory distress, no accessory muscle use Knees: right knee normal range of motion, right knee pain, right knee soft tissue tenderness Neurologic/Tendon: normal sensation, normal motor functions, normal tendon functions, responds to pain, no evidence tendon injury Neurologic/Psychiatric: alert, normal mood/affect, oriented x 3 Skin: normal color, warm/dry Normal capillary refill and distal pulses present. Progress/Results/Core Measures Results/Orders My Orders Orders - GARETT KRISHNAMURTHY Knee, Right, 3 Views (11/30/18 16:33) Vital Signs/I&O 11/30/18 16:24 Temp 98.0 Pulse 83 Resp 16 B/P (MAP) 154/90 (111) Pulse Ox 99 O2 Delivery Room Air Blood Pressure Mean: 111 Progress Progress Note : Time: 17:14 Progress Note I have seen and evaluated the patient. I've informed him of his imaging studies. Yung bandage was placed on the right knee for comfort. He declined crutches at this time. He agrees with plan of care, plans for chart, return precautions were given. Diagnostic Imaging Diagonstic Imaging: Xray Plain Films/CT/US/NM/MRI: knee Comments NAME: HOAMELANIE Gomez MED REC#: [id number] PT STATUS: REG ER : 1985 PHYSICIAN: GARETT KRISHNAMURTHY ADMIT DATE: 11/30/18/ER Signed Date of Exam:11/30/18 KNEE, RIGHT, 3 VIEWS INDICATION: Twisted right knee. TIME OF EXAM: 4:48 p.m. EXAMINATION: Three views of the right knee were obtained. FINDINGS: Normal alignment. Joint spaces are well maintained. Articular surfaces are smooth. No fracture, dislocation or effusion is seen. IMPRESSION: No acute bony abnormality is detected. Dictated by: Dictated on workstation # [id number] Dict: 11/30/18 1657 Trans: 11/30/181705 [facility] [id number] Interpreted by: ITALIA SLOAN MD Electronically signed by: ITALIA SLOAN MD 11/30/186 Reviewed: Reviewed by Me Departure Impression Primary Impression: Sprain of knee Disposition: HOME, SELF-CARE Condition: Stable/Unchanged Departure-Patient Inst. Decision time for Depature: 17:14 Referrals: NATHAN ELLIS MD (PCP/Family) Primary Care Physician Patient Instructions: Knee Sprain (DC) Add. Discharge Instructions: Wear the Yung bandage as needed for comfort. You may use ibuprofen and Tylenol as directed by the bottle for pain relief. Ice to the sore areas at 20 minute intervals. Follow-up with primary care as needed. Return back to the emergency room for worsening symptoms or concerns as needed. All discharge instructions reviewed with patient and/or family. Voiced understanding. Scripts No Active Prescriptions or Reported Meds GARETT KIRSHNAMURTHY Nov 30, 2018 16:37
--- NOTE | 2018-11-30 17:03 | Diagnostic Imaging Report ---
INDICATION: Twisted right knee. TIME OF EXAM: 4:48 p.m. EXAMINATION: Three views of the right knee were obtained. FINDINGS: Normal alignment. Joint spaces are well maintained. Articular surfaces are smooth. No fracture, dislocation or effusion is seen. IMPRESSION: No acute bony abnormality is detected. Dictated by: Dictated on workstation # [id number]
[2018-11-30 17:16] VITALS: BP 154/90
== END 2018-11-30 17:16 | disposition home or self-care (01) ==
LOC: EDUNIT# 16:18 → ER 16:20
DX: S83.91XA Sprain of unspecified site of right knee, initial encounter (principal); G43.909 Migraine, unspecified, not intractable, without status migrainosus; F98.8 Other specified behavioral and emotional disorders with onset usually occurring in childhood and adolescence; F90.9 Attention-deficit hyperactivity disorder, unspecified type; F31.9 Bipolar disorder, unspecified; F41.9 Anxiety disorder, unspecified; Z82.49 Family history of ischemic heart disease and other diseases of the circulatory system; W10.1XXA Fall (on)(from) sidewalk curb, initial encounter; Y92.511 Restaurant or cafe as the place of occurrence of the external cause
CPT/HCPCS: 73562

== ENCOUNTER 2018-12-04 17:53 | Emergency (ER) | payer BC ==
[~2018-12-04] VITALS: Ht 167.6 cm; Wt 133.8 kg
--- OUTSIDE RECORDS SUMMARY | 2018-12-04 18:48 | XMS REPORT | Continuity of Care Document ---
Author Author [facility] Address Unknown Phone Unavailable Allergies Active [...] Ot R19.7 DIARRHEA, UNSPECIFIED 06/12/2016 KELL BRITT FACILITIES MAINTENANCE MANAGER Ot L03.114 CELLULITIS OF LEFT UPPER LIMB 06/12/2016 KELL BRITT FACILITIES MAINTENANCE MANAGER Ot R07.89 OTHER CHEST PAIN 06/12/2016 KELL BRITT FACILITIES MAINTENANCE MANAGER Ot R42 DIZZINESS AND GIDDINESS 06/12/2016 KELL BRITT FACILITIES MAINTENANCE MANAGER Ot T67.5XXA HEAT EXHAUSTION, UNSPECIFIED, INITIAL EN 06/14/2016 KELL BRITT FACILITIES MAINTENANCE MANAGER Ot L03.114 CELLULITIS OF LEFT UPPER LIMB 06/14/2016 KELL BRITT FACILITIES MAINTENANCE MANAGER Ot R07.89 OTHER CHEST PAIN 06/14/2016 KELL BRITT FACILITIES MAINTENANCE MANAGER Ot R42 DIZZINESS AND GIDDINESS 06/14/2016 KELL BRITT FACILITIES MAINTENANCE MANAGER Ot T67.5XXA HEAT EXHAUSTION, UNSPECIFIED, INITIAL EN [...] KRISHNAMURTHYIS Ot F90.9 ATTENTION-DEFICIT HYPERACTIVITY DISORDER 07/29/2018 OSKARGARETT BUNCH Ot R51 HEADACHE 07/29/2018 OSKARARETHA BUNCHIS Ot Z82.49 FAMILY HX OF ISCHEM HEART DIS AND OTH DI 11/30/2018 SAY CHRISTIANSON DO Ot R56.9 UNSPECIFIED CONVULSIONS 11/30/2018 KERRIE LARIOS, PAOLA Ot K21.9 GASTRO-ESOPHAGEAL REFLUX DISEASE WITHOUT 11/30/2018 KERRIE LARIOS, PAOLA Ot Z01.818 ENCOUNTER FOR OTHER PREPROCEDURAL EXAMIN 12/03/2018 YESSYARETHAIS Ot F31.9 BIPOLAR DISORDER, UNSPECIFIED 12/03/2018 OSKARJULIO CARETHAIS Ot F41.9 ANXIETY DISORDER, UNSPECIFIED 12/03/2018 ARETHA KRISHNAMURTHYIS Ot F90.9 ATTENTION-DEFICIT HYPERACTIVITY DISORDER 12/03/2018 ARETHA KRISHNAMURTHYIS Ot F98.8 OTH BEHAV/EMOTN DISORD W ONSET USLY OCCU 12/03/2018 YESSY GARETT Ot G43.909 MIGRAINE, UNSP, NOT INTRACTABLE, WITHOUT 12/03/2018 YESSYARETHAIS Ot M25.561 PAIN IN RIGHT KNEE 12/03/2018 OSKARJULIO CARETHAIS Ot S83.91XA SPRAIN OF UNSPECIFIED SITE OF RIGHT KNEE 12/03/2018 YESSYARETHAIS Ot W10.1XXA FALL (ON)(FROM) SIDEWALK CURB, INITIAL E 12/03/2018 OSKARARETHA BUNCHIS Ot Y92.[address] 12/03/2018 YESSYARETHAIS Ot Z82.49 FAMILY HX OF ISCHEM HEART [...] Status Pt. Type Provider Facility Loc./Unit Complaint [id number] 11/05/2013 15:23:00 11/05/2013 23:59:59 CLS Outpatient CHARLIE TUTTLE APRN [id number] 07/04/2010 16:23:00 07/04/2010 23:59:59 CLS Outpatient ALICIA HAMILTON MD [id number] 11/30/2018 16:20:00 11/30/2018 17:16:00 DIS Outpatient GARETT KRISHNAMURTHY [facility] ER INJ KNEE STEPPING OFF CURB [id number] 07/27/2018 21:15:00 07/27/2018 22:25:00 DIS Emergency GARETT KRISHNAMURTHY [facility] ER HEAD PAIN [id number] 02/22/2018 13:00:00 02/22/2018 13:30:00 DIS Outpatient PAOLA SY MD [facility] SLEEP G47.33 ZHANG [id number] 02/11/2018 10:48:00 02/11/2018 23:59:59 CLS Outpatient PAOLA SY MD [facility] RAD REFLUX [id number] 07/29/2017 13:15:00 07/29/2017 17:19:00 DIS Emergency NIKO BLUM MD [facility] ER CP [id number] 12/21/2016 22:27:00 12/22/2016 00:55:00 DIS Emergency MARIZA LARIOS, SUSAN De La Garza [facility] ER ABD PAIN/VOMITING/ DIARRHEA [id number] 11/27/2016 22:54:00 11/27/2016 23:19:00 DIS Emergency NAEL JEFF DO [facility] ER HEADACHE/CONGESTION/SORE THROAT [id number] 08/24/2016 23:21:00 08/24/2016 23:39:00 DIS Emergency JANET CHACKO MD [facility] ER SORE THROAT,COUGHING, CONGESTION [id number] 07/03/2016 08:18:00 07/03/2016 23:59:59 CLS Outpatient ILANCHENGSAY MOORE DO [facility] RT SEIZURE HISTORY [id number] 06/12/2016 18:18:00 06/12/2016 20:53:00 DIS Emergency KELL BRITT APRN [facility] ER CHEST TIGHTNESS/ DISORIENTED [id number] 01/10/2016 23:13:00 01/11/2016 00:25:00 DIS Emergency JANET CHACKO MD [facility] ER FLU SYMPTOMS,V/N/D [id number] 12/16/2015 02:16:00 12/16/2015 03:40:00 DIS Emergency JANET CHACKO MD [facility] ER MIGRAINE [id number] 08/30/2015 01:10:00 08/30/2015 05:20:00 DIS Emergency MARIZA LARIOS, SUSAN De La Garza [facility] ER CP [id number] 05/24/2014 22:22:00 05/24/2014 23:37:00 DIS Emergency RICCO LARIOS, JANET Dodd [facility] ER FALL [id number] 02/01/2014 18:20:00 02/01/2014 18:48:00 DIS Emergency KELL BRITT APRN [facility] ER MULTIPLE COMPLAINTS [id number] 08/07/2013 16:48:00 08/07/2013 20:50:00 DIS Emergency RICCO LARIOS, JANET Dodd [facility] ER VOMITING BLOOD [id number] 12/04/2018 17:54:00 ACT Emergency BRIDGETTE LARIOS, SIDRA Adamson [facility] ER R KNEE PAIN [id number] 06/05/2018 06:32:00 Document Registration [id number] 12/07/2014 19:51:00 Document Registration [id number] 05/17/2012 15:24:00 Document Registration [id number] 07/31/2011 19:25:00 Document Registration [id number] 03/19/2011 22:20:00 Document Registration [id number] 12/09/2010 02:25:00 Document Registration [id number] 07/11/2010 09:42:00 Document Registration [id number] 06/06/2010 22:01:00 Document Registration [id number] 05/07/2010 03:04:00 Document Registration [id number] 04/20/2010 20:20:00 Document Registration [id number] 05/17/2009 20:31:00 Document Registration [id number] 03/14/2009 23:11:00 Document Registration [id number] 03/21/2018 09:00:00 03/21/2018 23:59:59 [facility]
[2018-12-04] MEDS ORDERED: NAPR-1071 PO (19:24)
--- NOTE | 2018-12-04 19:24 | ED Lower Extremity ---
General Chief Complaint: Lower Extremity Stated Complaint: R KNEE PAIN Nursing Triage Note: PT REPORTS BEING SEEN ON SUNDAY IN ER FOR "TWISTED KNEE" ON SUNDAY NIGHT. PT REPORTS PAIN IS NOT ANY BETTER DESPITE ICING, REST, AND OTC PAIN MEDICATION. PT STATES HE NOW HAS AN EXTRA BUMP BELOW KNEE CAP. Nursing Sepsis Screen: No Definite Risk Source: patient, family (mom) Exam Limitations: no limitations History of Present Illness Date Seen by Provider: Dec 04, 2018 Time Seen by Provider: 19:07 Initial Comments The patient presents to ER by private conveyance with mother and chief complaint that Sunday, approximately 5 days ago he was walking out of a bar drunk and twisted his right knee hurt a popping sensation and quite a bit of pain. He came up the next day to the ER was seen got an x-ray done nothing was fractured. He is been using Advil 2 tablets twice a day and ice pack routinely as well as wrapping his knee while up on it. He is not using gravity, topical creams, Tylenol or an adequate dose of NSAIDs. He has no previous history of orthopedic surgeries or problems with his knee. He has no numbness or weakness in his knee. He does have some mild swelling. He had no plans to follow up with anybody Dr. Jenkins his primary care or an orthopedic surgeon. Allergies and Home Medications Allergies Coded Allergies: GURPREETANo Known Allergies (Unverified Allergy, Mild, 03/14/09) Home Medications No Active Prescriptions or Reported Meds Patient Home Medication List Home Medication List Reviewed: Yes Review of Systems Constitutional: No chills, No fever, No malaise EENTM: No ear discharge, No ear pain Respiratory: No cough, No short of breath Cardiovascular: No chest pain, No palpitations Past Xyuwvac-Tvhaoj-Peabqk Hx Patient Social History Alcohol Use: Rarely Uses Number of Drinks Today: AA Alcohol Beverage of Choice: Beer Recreational Drug Use: No Smoking Status: Never a Smoker 2nd Hand Smoke Exposure: No Recent Foreign Travel: No Contact w/Someone Who Travel: No Recent Infectious Disease Expo: No Recent Hopitalizations: No Immunizations Up To Date Tetanus Booster (TDap): Less than 5yrs Date of Influenza Vaccine: Jun 07, 2016 Seasonal Allergies Seasonal Allergies: Yes Past Medical History Surgeries: No Respiratory: No Cardiac: No Neurological: Yes (SEIZURES A CHILD) Headaches /Migraines Reproductive Disorders: No Genitourinary: No Gastrointestinal: No Musculoskeletal: No Endocrine: No HEENT: No Cancer: No Psychosocial: Yes (EXTENSIVE PSYCH ISSUES) ADD/ADHD, Anxiety, Bipolar, Depression Integumentary: No Blood Disorders: No Family Medical History Heart Disease, Cancer Physical Exam Vital Signs Vital Signs - First Documented 12/04/18 18:44 Temp 97.7 Pulse 84 Resp 12 B/P (MAP) 151/90 (110) Pulse Ox 96 Capillary Refill : Less Than 3 Seconds Height, Weight, BMI Height: 5'6.00" Weight: 295lbs. oz. 133.992298xf; 47.42 BMI Method:Stated General Appearance: no apparent distress, obese HEENT: PERRL/EOMI, pharynx normal Neck: non-tender, full range of motion Cardiovascular: regular rate, rhythm Respiratory: no respiratory distress, no accessory muscle use Hips: bilateral hip non-tender, bilateral hip normal inspection, bilateral hip normal range of motion Legs: bilateral leg non-tender, bilateral leg normal inspection, bilateral leg normal range of motion, bilateral leg no evidence of injury Knees: left knee non-tender, left knee normal inspection; bilateral knee normal range of motion; left knee no evidence of injury; right knee bone tenderness (Anterior tibial plateau), right knee joint effusion (Mild-to- moderate), right knee pain, right knee other (Because of his pain and inability to allow his needed freely move it is difficult to do much of a good physical exam beyond that he has good range of motion and he walked in on it.) Ankles: bilateral ankle non-tender, bilateral ankle normal inspection, bilateral ankle normal range of motion, bilateral ankle no evidence of injury Progress/Results/Core Measures Results/Orders Vital Signs/I&O 12/04/18 18:44 Temp 97.7 Pulse 84 Resp 12 B/P (MAP) 151/90 (110) Pulse Ox 96 Blood Pressure Mean: 110 Progress Progress Note : Time: 19:21 Progress Note , Encourage Tylenol, wrapping, topical creams, ice and heat as well as elevation of the knee. We'll then have him follow-up next week with orthopedic surgeon software test and validation engineer Dr. Gay. Departure Impression Primary Impression: Sprain of knee Qualified Codes: S83.91XD - Sprain of unspecified site of right knee, subsequent encounter Disposition: 01 HOME, SELF-CARE Condition: Stable Departure-Patient Inst. Decision time for Depature: 19:22 Referrals: NATHAN ELLIS MD (PCP/Family) Primary Care Physician Patient Instructions: Knee Sprain (DC) Add. Discharge Instructions: For the first several days or if you're swelling an ice pack to your knee will be beneficial. You can also use heat. Wrap the knee with an Yung bandage as described. Keep the knee elevated above the level of your heart when at rest if possible. Do not do anything on the knee because it hurt worse. Start taking the prescription strength Naprosyn 500 mg twice a day by mouth with food for the next 2 weeks. Follow-up with Dr. Gay, orthopedic surgery at [facility] by calling tomorrow for an appointment next week. All discharge instructions reviewed with patient and/or family. Voiced understanding. Scripts Naproxen (Naprosyn) 500 Mg Tablet 500 MG PO BID for 14 Days, #30 TAB 0 Refills Prov: SIDRA ANGELES 12/04/18 Work/School Note: Work Release Form Date Seen in the Emergency Department: Dec 04, 2018 Return to Work: Dec 05, 2018 Restrictions: Need Release from Doctor Other Restrictions Listed Below: Do not lift over 45#. SIDRA ANGELES Dec 04, 2018 19:24
[2018-12-04 19:33] VITALS: BP 151/90
== END 2018-12-04 19:33 | disposition home or self-care (01) ==
LOC: EDUNIT# 17:53 → ER 17:54
DX: S83.91XD Sprain of unspecified site of right knee, subsequent encounter (principal); G43.909 Migraine, unspecified, not intractable, without status migrainosus; F98.8 Other specified behavioral and emotional disorders with onset usually occurring in childhood and adolescence; F90.9 Attention-deficit hyperactivity disorder, unspecified type; F31.9 Bipolar disorder, unspecified; Z82.49 Family history of ischemic heart disease and other diseases of the circulatory system; X50.1XXA Overexertion from prolonged static or awkward postures, initial encounter
CPT/HCPCS: 99283

== ENCOUNTER 2019-06-12 12:22 | Outpatient (RCR) | payer BC ==
[2019-06-12 13:06] LABS: SEMEN VOLUME 2.5 ML (1.5-5.0)
[2019-08-23] MEDS ORDERED: PRD50T (01:04)
[2019-08-23] MEDS ORDERED: AZIT250T12 (01:04)
[2019-08-23] MEDS ORDERED: PROP40TA5 (01:04)
[2019-08-23] MEDS ORDERED: D-ME473S38 (01:04)
[2019-08-23] MEDS ORDERED: BENZ100C18 PO (03:12)
[2019-08-23] MEDS ORDERED: CEFD300C3 PO (03:12)
== END 2019-09-10 | disposition home or self-care (01) ==
LOC: LAB 12:22
PROVIDERS: ATTEND Nurse Practitioner Primary Care
DX: Z31.41 Encounter for fertility testing (principal); R51 Headache
CPT/HCPCS: 89320

== ENCOUNTER 2019-08-23 00:45 | Emergency (ER) | payer BC ==
[~2019-08-23] VITALS: Ht 167.6 cm; Wt 138.5 kg
[2019-08-23] MEDS ORDERED: D-ME473S38 (01:04)
[2019-08-23] MEDS ORDERED: PROP40TA5 (01:04)
[2019-08-23] MEDS ORDERED: AZIT250T12 (01:04)
[2019-08-23] MEDS ORDERED: PRD50T (01:04)
--- NOTE | 2019-08-23 01:54 | ED Cough/URI ---
General Chief Complaint: Cough/Cold/Flu Symptoms Stated Complaint: SOB,BRONCHITIS Nursing Triage Note: non productive cough,soa. dx with bronchitis 08/22/19 Sepsis Screen: No Definite Risk Source: patient History of Present Illness Date Seen by Provider: Aug 23, 2019 Time Seen by Provider: 01:12 Initial Comments PT ARRIVES VIA POV FROM HOME C/O NON-PRODUCTIVE COUGH FOR 3-4 WEEKS, WORSE FOR THE LAST 2 WEEKS NO FEVER/SWEATS/CHILLS NO NASAL DRAINAGE OR SINUS PAIN NO CHEST PAIN STATES HE WENT TO [facility] TODAY AND GOT RX FOR ZITHROMAX Z PACK AND STEROIDS.. NO TESTS WERE DONE, BUT WAS DX WITH BRONCHITIS STATES TONIGHT HE WENT TO A FRIEND'S HOUSE AND HAD "2 ENERGY DRINKS" AND WHEN HE CAME HOME 30 MINUTES AGO, HE GOT REAL SWEATY AND SHORT OF BREATH, SO CAME STRAIGHT HERE. THOSE SYMPTOMS HAVE RESOLVE.D NO OTHERWISE SYMPTOMS ARE NO DIFFERENT TODAY AND HAD NOT SOUGHT CARE UNTIL TODAY HAS NOT TAKEN ANYTHING FOR SYMPTOMS OTHER THAN THE ABOVE PT IS NON-SMOKER, BUT HAS SECOND HAND SMOKE PCP: [facility] Allergies and Home Medications Allergies Coded Allergies: GURPREETANo Known Allergies (Unverified Allergy, Mild, 03/14/09) Home Medications Benzonatate 100 Mg Capsule, 1-2 TAB PO TID Prescribed by: NAEL JEFF on 08/23/19311 Cefdinir 300 Mg Capsule, 300 MG PO BID Prescribed by: NAEL JEFF on 08/23/19311 Naproxen 500 Mg Tablet, 500 MG PO BID Prescribed by: SIDRA ANGELES on 12/04/181923 Patient Home Medication List Home Medication List Reviewed: Yes Review of Systems Review of Systems Constitutional: see HPI, diaphoresis; No dizziness, No fever EENTM: no symptoms reported; No nose congestion, No throat pain Respiratory: see HPI, cough; No phlegm; short of breath; No wheezing Cardiovascular: no symptoms reported; No chest pain, No edema, No syncope Gastrointestinal: no symptoms reported; No abdominal pain, No nausea, No vomiting Genitourinary: no symptoms reported Musculoskeletal: no symptoms reported; No back pain Skin: no symptoms reported Psychiatric/Neurological: No Symptoms Reported Hematologic/Lymphatic: No Symptoms Reported Immunological/Allergic: no symptoms reported Past Bxcsmlw-Rawtgw-Uscfqq Hx Patient Social History Alcohol Use: Rarely Uses Number of Drinks Today: AA Alcohol Beverage of Choice: Beer Recreational Drug Use: No Smoking Status: Never a Smoker 2nd Hand Smoke Exposure: No Recent Foreign Travel: No Contact w/Someone Who Travel: No Recent Infectious Disease Expo: No Recent Hopitalizations: No Physical Abuse: No Sexual Abuse: No Mistreated: No Fear: No Immunizations Up To Date Tetanus Booster (TDap): Less than 5yrs Date of Influenza Vaccine: Jun 07, 2016 Seasonal Allergies Seasonal Allergies: Yes Past Medical History Surgeries: No Respiratory: No Cardiac: Yes Hypertension Neurological: Yes (SEIZURES A CHILD) Headaches /Migraines Reproductive Disorders: No Genitourinary: No Gastrointestinal: No Musculoskeletal: No Endocrine: No HEENT: No Cancer: No Psychosocial: Yes ADD/ADHD, Anxiety, Bipolar, Depression Integumentary: No Blood Disorders: No Family Medical History Heart Disease, Cancer Physical Exam Vital Signs - First Documented Capillary Refill : Less Than 3 Seconds Height: 5'6.00" Weight: 295lbs. oz. 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, no motor/sensory deficits, alert, normal mood/affect, oriented x 3 Skin: normal color, warm/dry Focused Exam Lactate Level 08/23/19 02:00: Lactic Acid Level 1.60 Lactic Acid Level Laboratory Tests Test 08/23/19 02:00 Lactic Acid Level 1.60 MMOL/L (0.50-2.00) Progress/Results/Core Measures Suspected Sepsis Recent Fever Within 48 Hours: No Infection Criteria Present: Documented Infection New/Unexplained Altered Menta: No Sepsis Screen: No Definite Risk SIRS Temperature: Pulse: 97 Respiratory Rate: 18 Laboratory Tests 08/23/19 02:00: White Blood Count 12.8H Blood Pressure 140 /94 Mean: 109 08/23/19 02:00: Lactic Acid Level 1.60 Laboratory Tests 08/23/19 02:00: Creatinine 0.86, Platelet Count 216, Total Bilirubin 0.5 Results/Orders Lab Results Laboratory Tests Test 08/23/19 02:00 08/23/19 02:10 Range/Units White Blood Count 12.8 H 4.3-11.0 10^3/uL Red Blood Count 5.17 4.35-5.85 10^6/uL Hemoglobin 15.6 13.3-17.7 G/DL Hematocrit 45 40-54 % Mean Corpuscular Volume 87 80-99 FL Mean Corpuscular Hemoglobin 30 25-34 PG Mean Corpuscular Hemoglobin Concent 35 32-36 G/DL Red Cell Distribution Width 13.1 10.0-14.5 % Platelet Count 216 130-400 10^3/uL Mean Platelet Volume 11.2 H 7.4-10.4 FL Neutrophils (%) (Auto) 87 H 42-75 % Lymphocytes (%) (Auto) 8 L 12-44 % Monocytes (%) (Auto) 5 0-12 % Eosinophils (%) (Auto) 0 0-10 % Basophils (%) (Auto) 0 0-10 % Neutrophils # (Auto) 11.2 H 1.8-7.8 X 10^3 Lymphocytes # (Auto) 1.0 1.0-4.0 X 10^3 Monocytes # (Auto) 0.6 0.0-1.0 X 10^3 Eosinophils # (Auto) 0.0 0.0-0.3 10^3/uL Basophils # (Auto) 0.0 0.0-0.1 10^3/uL Sodium Level 137 135-145 MMOL/L Potassium Level 4.5 3.6-5.0 MMOL/L Chloride Level 105 98-107 MMOL/L Carbon Dioxide Level 22 21-32 MMOL/L Anion Gap 10 5-14 MMOL/L Blood Urea Nitrogen 12 7-18 MG/DL Creatinine 0.86 0.60-1.30 MG/DL Estimat Glomerular Filtration Rate > 60 BUN/Creatinine Ratio 14 Glucose Level 105 70-105 MG/DL Lactic Acid Level 1.60 0.50-2.00 MMOL/L Calcium Level 9.5 8.5-10.1 MG/DL Corrected Calcium 9.1 8.5-10.1 MG/DL Total Bilirubin 0.5 0.1-1.0 MG/DL Aspartate Amino Transf (AST/SGOT) 19 5-34 U/L Alanine Aminotransferase (ALT/SGPT) 27 0-55 U/L Alkaline Phosphatase 65 40-136 U/L B-Type Natriuretic Peptide < 10.0 <100.0 PG/ML Total Protein 8.5 H 6.4-8.2 GM/DL Albumin 4.5 3.2-4.5 GM/DL Urine Opiates Screen NEGATIVE NEGATIVE Urine Oxycodone Screen NEGATIVE NEGATIVE Urine Methadone Screen NEGATIVE NEGATIVE Urine Propoxyphene Screen NEGATIVE NEGATIVE Urine Barbiturates Screen NEGATIVE NEGATIVE Ur Tricyclic Antidepressants Screen NEGATIVE NEGATIVE Urine Phencyclidine Screen NEGATIVE NEGATIVE Urine Amphetamines Screen NEGATIVE NEGATIVE Urine Methamphetamines Screen NEGATIVE NEGATIVE Urine Benzodiazepines Screen NEGATIVE NEGATIVE Urine Cocaine Screen NEGATIVE NEGATIVE Urine Cannabinoids Screen NEGATIVE NEGATIVE My Orders Orders - NAEL JEFF DO Chest Pa/Lat (2 View) (08/23/19 01:11) Ed Iv/Invasive Line Start (08/23/19 02:03) BNP (08/23/19 02:03) Cbc With Automated Diff (08/23/19 02:03) Comprehensive Metabolic Panel (08/23/19 02:03) Drug Screen Stat (Urine) (08/23/19 02:03) Lactic Acid Analyzer (08/23/19 02:03) Blood Culture (08/23/19 02:03) Ceftriaxone For Iv Use (Rocephin For I (08/23/19 02:15) Medications Given in ED Current Medications Medications Dose Ordered Sig/Ye Route Start Time Stop Time Status Last Admin Dose Admin Ceftriaxone Sodium 1000 mg/ Sterile Water 10 ml @ 200 mls/hr ONCE ONCE IV 08/23/19 02:15 08/23/19 02:17 DC 08/23/19 02:20 200 MLS/HR Vital Signs/I&O 08/23/19 08/23/19 08/23/19 00:58 00:58 03:15 Temp 36.6 36.8 Pulse 97 78 Resp 18 26 B/P (MAP) 140/94 (109) 124/81 Pulse Ox 93 93 O2 Delivery Room Air Room Air Room Air Capillary Refill : Less Than 3 Seconds Blood Pressure Mean: 109 POS Progress Note : Progress Note UNEVENTFUL ER STAY Diagnostic Imaging Comments CXR--BIBASILAR INFILTRATES/ATELECTASIS, PENDING RADIOLOGIST REVIEW Reviewed: Reviewed by Me Departure Impression Primary Impression: Pneumonia Disposition: HOME, SELF-CARE Condition: Stable Departure-Patient Inst. Referrals: NATHAN ELLIS MD (PCP/Family) Primary Care Physician Patient Instructions: Community-Acquired Pneumonia, Adult (DC) Add. Discharge Instructions: CONTINUE ZITHROMAX AND PREDNISONE PRESCRIBED ALSO USE COUGH SYRUP PRESCRIBED LOTS OF CLEAR LIQUIDS, AVOID CAFFEINE TYLENOL AND MOTRIN NEEDED FOR PAIN OR FEVER FOLLOW UP WITH YOUR DR IN 4-5 DAYS FOR FURTHER CARE All discharge instructions reviewed with patient and/or family. Voiced understanding. Scripts Benzonatate (TESSALON PERLES) 100 Mg Capsule 1-2 TAB PO TID for Cough, #30 CAP Prov: NAEL JEFF DO 08/23/19 Cefdinir (Cefdinir) 300 Mg Capsule 300 MG PO BID for FOR INFECTION, #20 CAP Prov: NAEL JEFF DO 08/23/19 NAEL JEFF DO Aug 23, 2019 01:54 POS
[2019-08-23] MEDS ORDERED: cefTRIAXone FOR IV USE 1,000 MG in WATER (STERILE) FOR INJECTION 10 ML IV ONE (02:15)
[2019-08-23 02:16] LABS: BASOPHILS % (AUTO) 0 % (0-10); EOSINOPHILS % (AUTO) 0 % (0-10); HEMATOCRIT 45 % (40-54); HEMOGLOBIN 15.6 G/DL (13.3-17.7); LYMPHOCYTES % (AUTO) 8 % (12-44); MEAN CORPUSCULAR HEMOGLOBIN 30 PG (25-34); MEAN CORPUSCULAR HGB CONC 35 G/DL (32-36); MEAN CORPUSCULAR VOLUME 87 FL (80-99); MEAN PLATELET VOLUME 11.2 FL (7.4-10.4); MONOCYTES # (AUTO) 0.6 X 10^3 (0.0-1.0); MONOCYTES % (AUTO) 5 % (0-12); NEUTROPHILS # (AUTO) 11.2 X 10^3 (1.8-7.8); NEUTROPHILS % (AUTO) 87 % (42-75); PLATELET COUNT 216 10^3/uL (130-400); RED CELL DISTRIBUTION WIDTH 13.1 % (10.0-14.5); WHITE BLOOD COUNT 12.8 10^3/uL (4.3-11.0)
[2019-08-23 02:34] LABS: ALANINE AMINOTRANSFERASE 27 U/L (0-55); ALBUMIN 4.5 GM/DL (3.2-4.5); ALKALINE PHOSPHATASE 65 U/L (40-136); BILIRUBIN,TOTAL 0.5 MG/DL (0.1-1.0); BUN/CREATININE RATIO 14; CALCIUM 9.5 MG/DL (8.5-10.1); CARBON DIOXIDE 22 MMOL/L (21-32); CHLORIDE 105 MMOL/L (98-107); CREATININE SERUM 0.86 MG/DL (0.60-1.30); GFR ESTIMATED > 60; GLUCOSE 105 MG/DL (70-105); POTASSIUM 4.5 MMOL/L (3.6-5.0); SODIUM 137 MMOL/L (135-145); TOTAL PROTEIN 8.5 GM/DL (6.4-8.2)
[2019-08-23 02:46] LABS: AMPHETAMINE SCREEN, URINE NEGATIVE (NEGATIVE); BARBITURATE SCREEN URINE NEGATIVE (NEGATIVE); BENZODIAZEPINES SCREEN URINE NEGATIVE (NEGATIVE); CANNABINOID SCREEN, URINE NEGATIVE (NEGATIVE); COCAINE SCREEN URINE NEGATIVE (NEGATIVE); METHADONE STAT NEGATIVE (NEGATIVE); METHAMPHETAMINE SCREEN URINE S NEGATIVE (NEGATIVE); OPIATE SCREEN URINE NEGATIVE (NEGATIVE); OXYCODONE STAT NEGATIVE (NEGATIVE); PROPOXYPHENE STAT NEGATIVE (NEGATIVE); TRICYCLIC ANTIDEPRESSANTS SCRE NEGATIVE (NEGATIVE)
[2019-08-23] MEDS ORDERED: CEFD300C3 PO (03:12)
[2019-08-23] MEDS ORDERED: BENZ100C18 PO (03:12)
[2019-08-23 03:15] VITALS: BP 124/81
--- NOTE | 2019-08-23 07:22 | Diagnostic Imaging Report ---
EXAMINATION: Chest 2 view HISTORY: Cough. COMPARISON: 07/29/2017 FINDINGS: The lung volumes are normal. No focal consolidation is seen. A small amount of bibasilar opacities are present. No large pleural effusion or pneumothorax is seen. The cardiomediastinal silhouette is normal in size and contour. No acute osseous abnormality is seen. IMPRESSION: 1. Small amount of bibasilar opacities, likely representing atelectasis. Dictated by: Dictated on workstation # [id number]
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
== END 2019-08-23 03:15 | disposition home or self-care (01) ==
LOC: EDUNIT# 00:45 → ER 00:50
DX: J18.9 Pneumonia, unspecified organism (principal); I10 Essential (primary) hypertension; G43.909 Migraine, unspecified, not intractable, without status migrainosus; F90.9 Attention-deficit hyperactivity disorder, unspecified type; F41.9 Anxiety disorder, unspecified; F31.9 Bipolar disorder, unspecified; Z77.22 Contact with and (suspected) exposure to environmental tobacco smoke (acute) (chronic); Z82.49 Family history of ischemic heart disease and other diseases of the circulatory system
CPT/HCPCS: 36415; 71046; 80053; 80306; 83605; 83880; 85025; 87040; 96374

== ENCOUNTER 2021-02-24 02:12 | Emergency (ER) | payer BC ==
[~2021-02-24 02:12] MED LIST changes: +AZIT250T12; +CEFD300C3 PO; -CETI10TA20 PO; +CETI10TA49 PO; +D-ME473S11; +PRD50T; +PROP40TA5; -RISP0.5T3 PO; +RISP0.5T65 PO
[2021-02-24 03:00] VITALS: BP 144/91
[2021-02-24] MEDS ORDERED: RX-TRIMETH/SULFA. 160-800 MG (BACTRIM DS) TAB PPK#2 PO STA (03:09)
[2021-02-24] MEDS ORDERED: SULF1TAB35 PO (03:11)
--- NOTE | 2021-02-24 03:11 | ED Integumentary General ---
General Chief Complaint: Skin/Wound Problems Stated Complaint: POSS SPIDER BITE IN ARM PIT Nursing Triage Note: AMBULATES TO ROOM #7 FROM POV W/CO WOUND TO L AXILLA. STATES X5 DAYS AGO HE NOTICED AREA OF CONCERN. STATES PROGRESSIVE PAIN AND INCREASE IN SIZE. STATES HE ATTEMPTED TO "POP" WOUND X2 DAYS AGO. Source: patient History of Present Illness Date Seen by Provider: Feb 24, 2021 Time Seen by Provider: 03:03 Initial Comments PT ARRIVES VIA POV FROM WORK--WORKS AT [employer] C/O PAINFUL KNOT IN LEFT AXILLA X 5 DAYS, IS GETTING WORSE STATES HE TRIED TO "POP" IT 2 DAYS AGO--NO IMPROVEMENT NO HISTORY OF SIMILAR NO FEVER NO DRAINAGE PT IS ON METFORMIN, BUT STATES IT WAS PRESCRIBED "FOR AN ALLERGIC REACTION TO DEODORANT" STATES HIS LAST A1C WAS 5.1 Allergies and Home Medications Allergies Coded Allergies: GURPREETANo Known Allergies (Unverified Allergy, Mild, 03/14/09) Home Medications Benzonatate 100 Mg Capsule, 1-2 TAB PO TID Prescribed by: NAEL JEFF on 08/23/19311 Cefdinir 300 Mg Capsule, 300 MG PO BID Prescribed by: NAEL JEFF on 08/23/19311 Naproxen 500 Mg Tablet, 500 MG PO BID Prescribed by: SIDRA ANGELES on 12/04/181923 Sulfamethoxazole/Trimethoprim 1 Each Tablet, 1 EACH PO BID Prescribed by: NAEL JEFF on 02/24/21310 Patient Home Medication List Home Medication List Reviewed: Yes Review of Systems Review of Systems Constitutional: no symptoms reported Skin: see HPI Past Zibmfkh-Lhmbae-Kozwfv Hx Past Med/Social Hx: Reviewed and Corrections made Patient Social History Alcohol Use: Rarely Uses Number of Drinks Today: AA Alcohol Beverage of Choice: Beer Smoking Status: Never a Smoker 2nd Hand Smoke Exposure: No Recent Infectious Disease Expo: No Recent Hopitalizations: No Immunizations Up To Date Tetanus Booster (TDap): Less than 5yrs Date of Influenza Vaccine: Jun 07, 2016 Seasonal Allergies Seasonal Allergies: Yes Past Medical History Surgeries: No Respiratory: No Cardiac: Yes Hypertension Neurological: Yes (SEIZURES A CHILD) Headaches /Migraines Reproductive Disorders: No Genitourinary: No Gastrointestinal: No Musculoskeletal: No Endocrine: Yes (MORBIDLY OBESE--> 300 LBS. ON METFORMIN--DENIES BEING DIABETIC) HEENT: No Cancer: No Psychosocial: Yes ADD/ADHD, Anxiety, Bipolar, Depression Integumentary: No Blood Disorders: No Family Medical History Heart Disease, Cancer Physical Exam Vital Signs Vital Signs - First Documented 02/24/21 03:00 Temp 36.7 Pulse 74 Resp 18 B/P (MAP) 144/91 (108) Pulse Ox 98 O2 Delivery Room Air Capillary Refill : Less Than 3 Seconds General Appearance: WD/WN, no apparent distress, obese (MORBIDLY OBESE) Extremities: other (LEFT AXILLA WITH 2 X 3 CM AREA RAISED, TENDER, VERY FIRM/INDURATED, RED SUB Q NODULE. NO FLUCTUANCE. NO POINTING. NO DRAINAGE. NO STREAKS. ) Neurologic/Psychiatric: no motor/sensory deficits Skin: normal color, warm/dry, other ( ABOVE) Progress/Results/Core Measures Results/Orders My Orders Orders - NAEL JEFF DO Rx-Trimeth/Sulfameth Ds Tab (Rx-Bactrim/ (02/24/21 03:09) Vital Signs/I&O 02/24/21 03:00 Temp 36.7 Pulse 74 Resp 18 B/P (MAP) 144/91 (108) Pulse Ox 98 O2 Delivery Room Air Blood Pressure Mean: 108 Progress Progress Note : Progress Note NO I&D REQUIRED AT THIS TIME. ADVISED PT THAT IN A FEW DAYS IT MAY BE NEEDED IF A DEFINITE ABSCESS FORMS. Departure Impression Primary Impression: SUPERFICIAL ABSCESS LEFT AXILLA Disposition: 01 HOME, SELF-CARE Condition: Stable Departure-Patient Inst. Decision time for Depature: 03:10 Referrals: [facility] (PCP/Family) Primary Care Physician Patient Instructions: Skin Abscess Add. Discharge Instructions: MOIST HEAT TO AREA AT 20 MINUTE INTERVALS DO NOT POKE, PICK AT OR SQUEEZE THE AREA TYLENOL AND MOTRIN NEEDED FOR PAIN FOLLOW UP WITH [facility] IN 2-3 DAYS FOR FURTHER CARE--CALL TODAY TO MAKE AN APPOINTMENT OR YOU MAY GO TO WALK IN CLINIC All discharge instructions reviewed with patient and/or family. Voiced understanding. Scripts Sulfamethoxazole/Trimethoprim (Bactrim Ds Tablet) 1 Each Tablet 1 EACH PO BID, #20 TAB Prov: NAEL JEFF DO 02/24/21 NAEL JEFF DO Feb 24, 2021 03:11
== END 2021-02-24 03:17 | disposition home or self-care (01) ==
LOC: EDUNIT# 02:12 → ER 02:15
DX: L02.412 Cutaneous abscess of left axilla (principal); E66.01 Morbid (severe) obesity due to excess calories; I10 Essential (primary) hypertension
CPT/HCPCS: 99283

== ENCOUNTER → 2021-07-11 | Outpatient (CLI) | payer BC ==
[~2021-07-11] MED LIST changes: -SULF1TAB35 PO; +SULF1TAB38 PO
[2021-07-11 08:34] LABS: HEMATOCRIT 46 % (40-54); HEMOGLOBIN 15.2 g/dL (13.3-17.7); MEAN CORPUSCULAR HEMOGLOBIN 31 pg (25-34); MEAN CORPUSCULAR HGB CONC 33 g/dL (32-36); MEAN CORPUSCULAR VOLUME 92 fL (80-99); MEAN PLATELET VOLUME 10.9 fL (9.0-12.2); PLATELET COUNT 163 10^3/uL (130-400); WHITE BLOOD COUNT 6.6 10^3/uL (4.3-11.0)
[2021-07-11 08:52] LABS: ALBUMIN 3.9 GM/DL (3.2-4.5); BILIRUBIN,TOTAL 0.4 MG/DL (0.1-1.0); CALCIUM 9.3 MG/DL (8.5-10.1); CREATININE SERUM 0.78 MG/DL (0.60-1.30); POTASSIUM 3.9 MMOL/L (3.6-5.0)
== END ==
LOC: LAB 08:04
PROVIDERS: ATTEND Family Medicine
DX: E11.9 Type 2 diabetes mellitus without complications (principal); I10 Essential (primary) hypertension
CPT/HCPCS: 36415; 80053; 80061; 83036; 85027

== ENCOUNTER → 2022-01-11 | Outpatient (CLI) | payer BC ==
[~2022-01-11] MED LIST changes: +CYCL10TA25 PO; -CYCL10TA9 PO
[2022-01-11 11:52] LABS: HEMATOCRIT 46 % (40-54); HEMOGLOBIN 15.7 g/dL (13.3-17.7); MEAN CORPUSCULAR HEMOGLOBIN 30 pg (25-34); MEAN CORPUSCULAR HGB CONC 34 g/dL (32-36); MEAN CORPUSCULAR VOLUME 89 fL (80-99); PLATELET COUNT 168 10^3/uL (130-400); WHITE BLOOD COUNT 5.9 10^3/uL (4.3-11.0)
[2022-01-11 12:08] LABS: BILIRUBIN,TOTAL 0.8 MG/DL (0.1-1.0); CALCIUM 9.1 MG/DL (8.5-10.1); CREATININE SERUM 0.86 MG/DL (0.60-1.30); POTASSIUM 3.8 MMOL/L (3.6-5.0); TOTAL PROTEIN 7.8 GM/DL (6.4-8.2)
== END ==
LOC: LAB 11:15
PROVIDERS: ATTEND Family Medicine
DX: I10 Essential (primary) hypertension (principal); E78.5 Hyperlipidemia, unspecified; R53.83 Other fatigue; R06.02 Shortness of breath
CPT/HCPCS: 36415; 80053; 80061; 83880; 84443; 85027

== ENCOUNTER → 2022-01-17 | Outpatient (CLI) | payer BC ==
--- NOTE | 2022-01-17 13:46 | Diagnostic Imaging Report ---
INDICATION: Shortness of breath. TIME OF EXAM: 12:57 PM. COMPARISON: Correlation is made with the prior chest from 08/23/2019. FINDING: The heart size is normal. The pulmonary vascularity is unremarkable. The lungs are clear. No infiltrate, effusion, or pneumothorax is detected. IMPRESSION: No acute cardiopulmonary process is detected. Dictated by: Dictated on workstation # [id number]
== END ==
LOC: RAD 12:36
PROVIDERS: ATTEND Family Medicine
DX: R06.02 Shortness of breath (principal)
CPT/HCPCS: 71046

== ENCOUNTER 2022-03-14 17:51 | Emergency (ER) | payer BC ==
[~2022-03-14] VITALS: Ht 167 cm; Wt 150.0 kg
--- NOTE | 2022-03-14 18:12 | ED EENT ---
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 PT IS MORBIDLY OBESE--WEIGHT > 300 LBS NOT HAVING THOSE SYMPTOMS NOW. PT IS NOT COVID OR FLU VACCINATED DENIES KNOWN SICK CONTACTS DENIES ANY CHRONIC MEDICAL PROBLEMS PCP: DR. CHRISTIANSON Allergies and Home Medications Allergies Coded Allergies: [place] Known Allergies (Unverified Allergy, Mild, 03/14/09) Patient Home Medication List Home Medication List Reviewed: Yes Amoxicillin (Amoxicillin) 875 Mg Tablet, 875 MG PO BID Prescribed by: NAEL JEFF on 03/14/221908 Azithromycin (Azithromycin) 250 Mg Tablet, (Reported) Entered as Reported by: KOLTON FONTANA on 08/23/19103 Benzonatate (Tessalon Perles) 100 Mg Capsule, 1-2 TAB PO TID Prescribed by: NAEL JEFF on 08/23/19311 Cefdinir (Cefdinir) 300 Mg Capsule, 300 MG PO BID Prescribed by: NAEL JEFF on 08/23/19311 Naproxen (Naprosyn) 500 Mg Tablet, 500 MG PO BID Prescribed by: SIDRA ANGELES on 12/04/181923 Prednisone (Prednisone) 50 Mg Tab, (Reported) Entered as Reported by: KOLTON FONTANA on 08/23/19103 Prednisone (Prednisone) 20 Mg Tab, 40 MG PO DAILY Prescribed by: NAEL JEFF on 03/14/221908 Promethazine/Dextromethorphan (Promethazine-Dm Syrup) 473 Ml Syrup, (Reported) Entered as Reported by: KOLTON FONTANA on 08/23/19103 Propranolol HCl (Propranolol HCl) 40 Mg Tablet, (Reported) Entered as Reported by: KOLTON FONTANA on 08/23/19 0104 Sulfamethoxazole/Trimethoprim (Bactrim Ds Tablet) 1 Each Tablet, 1 EACH PO BID Prescribed by: NAEL JEFF on 02/24/21 0311 Review of Systems Review of Systems Constitutional: no symptoms reported Eyes: No Symptoms Reported Ears: No Symptoms Reported Nose: no symptoms reported Mouth: no symptoms reported Throat: see HPI, pain; denies swelling, denies discharge, denies neck stiffness, denies hoarse, denies aphonia, denies muffled, denies painful swallowing, denies difficulty with fluids Respiratory: see HPI Cardiovascular: see HPI Gastrointestinal: no symptoms reported Musculoskeletal: see HPI (BODY ACHES) Skin: no symptoms reported Neurological: No Symptoms Reported Hematologic/Lymphatic: No Symptoms Reported Immunological/Allergic: no symptoms reported Past Mzyhjum-Qcdfsi-Cpvewe Hx Immunizations Up To Date Tetanus Booster (TDap): Less than 5yrs Seasonal Allergies Seasonal Allergies: Yes Past Medical History Surgeries: No Respiratory: No Cardiac: Yes Hypertension Neurological: Yes (SEIZURES A CHILD) Headaches /Migraines Reproductive Disorders: No Genitourinary: No Gastrointestinal: No Musculoskeletal: No Endocrine: Yes (MORBIDLY OBESE--> 300 LBS. ON METFORMIN--DENIES BEING DIABETIC) HEENT: No Cancer: No Psychosocial: Yes ADD/ADHD, Anxiety, Bipolar, Depression Integumentary: No Blood Disorders: No Family Medical History Heart Disease, Cancer Physical Exam Vital Signs Vital Signs - First Documented 03/14/22 18:11 Temp 37.1 Pulse 73 Resp 18 B/P (MAP) 145/96 (112) Pulse Ox 97 O2 Delivery Room Air Height, Weight, BMI Height: 5'6.00" Weight: 295lbs. oz. 133.070983yu; BMI Method:Stated General Appearance: WD/WN, no apparent distress, obese, other (DOES NOT APPEAR TO BE ILL OR IN ANY DISCOMFORT OR DISTRESS) Eyes: bilateral eye normal inspection, bilateral eye PERRL, bilateral eye EOMI Ears: bilateral ear auricle normal, bilateral ear canal normal, bilateral ear TM normal Nose: normal inspection Mouth/Throat: No pharynx swelling, No tonsillar exudate, No trismus, No uvula swelling, No voice changes; other (VERY MILD PHARYNGEAL ERYTHEMA) Neck: non-tender, full range of motion, supple, normal inspection; No lymphadenopathy (R), No lymphadenopathy (L) Cardiovascular: regular rate, rhythm, no edema, no JVD, no murmur Respiratory: normal breath sounds, no respiratory distress, no accessory muscle use Gastrointestinal: non tender, soft Neurologic/Psychiatric: bench hand machine II-XII nml as tested, no motor/sensory deficits, alert, normal mood/affect, oriented x 3 Skin: normal color, warm/dry; No rash Progress/Results/Core Measures Results/Orders Lab Results Laboratory Tests Test 03/14/22 18:18 Range/Units Influenza Type A (RT-PCR) Not Detected Not Detecte Influenza Type B (RT-PCR) Not Detected Not Detecte SARS-CoV-2 RNA (RT-PCR) Not Detected Not Detecte Group A Streptococcus Screen NEGATIVE NEGATIVE My Orders Orders - NAEL JEFF DO Rapid Strep A Screen (03/14/22 18:10) Covid 19 Inhouse Test (03/14/22 18:10) Influenza A And B By Pcr (03/14/22 18:10) Isolation Central Supply Req (03/14/22 18:10) Vital Signs/I&O 03/14/22 03/14/22 18:11 19:10 Temp 37.1 Pulse 73 71 Resp 18 20 B/P (MAP) 145/96 (112) 145/78 Pulse Ox 97 97 O2 Delivery Room Air Progress Progress Note : Progress Note PLACED IN ISOLATION ROOM PPE WORN COVID, FLU AND STREP TESTING DONE. Departure Impression Primary Impression: Pharyngitis Disposition: 01 HOME, SELF-CARE Condition: Stable Departure-Patient Inst. Decision time for Depature: 19:05 Referrals: SAY CHRISTIANSON DO Patient Instructions: Sore Throat, Adult (DC) Add. Discharge Instructions: LOTS OF CLEAR LIQUIDS--WATER, BROTH, JELLO, GATORADE TYLENOL AND MOTRIN NEEDED FOR PAIN OR FEVER FREQUENT SALT WATER GARGLES FOLLOW UP WITH DR. CHRISTIANSON IN 2-3 DAYS IF NO BETTER Scripts Prednisone (Prednisone) 20 Mg Tab 40 MG PO DAILY, #6 TAB 0 Refills Prov: NAEL JEFF DO 03/14/22 Amoxicillin (Amoxicillin) 875 Mg Tablet 875 MG PO BID, #20 TAB Prov: NAEL JEFF DO 03/14/22 NAEL JEFF DO Mar 14, 2022 18:12
[2022-03-14] MEDS ORDERED: AMOX875T2 PO (19:09)
[2022-03-14] MEDS ORDERED: PRD20T PO (19:09)
[2022-03-14 19:10] VITALS: BP 145/78
== END 2022-03-14 19:14 | disposition home or self-care (01) ==
LOC: EDUNIT# 17:51 → ER 17:54
DX: J02.9 Acute pharyngitis, unspecified (principal); E66.01 Morbid (severe) obesity due to excess calories; Z20.822 Contact with and (suspected) exposure to COVID-19; Z28.310 Unvaccinated for COVID-19
CPT/HCPCS: 87430; 87636; 99283

== ENCOUNTER 2022-04-04 15:46 | Emergency (ER) | payer BC ==
[~2022-04-04] VITALS: Ht 167 cm; Wt 149.0 kg
[~2022-04-04 15:46] MED LIST changes: +AMOX875T2 PO; +PRD20T PO
[2022-04-04 16:08] VITALS: BP 158/89
[2022-04-04] MEDS ORDERED: MELO15TA39 (16:19)
[2022-04-04] MEDS ORDERED: ORPHENADRINE 60 MG/2 ML (NORFLEX) AMP (ED ONLY) IM ONE (16:30)
[2022-04-04] MEDS ORDERED: KETOROLAC 30 MG/ML VIAL IM ONE (16:30)
--- NOTE | 2022-04-04 16:32 | ED Back Pain ---
General Chief Complaint: Back Problems Stated Complaint: BACK PAIN Nursing Triage Note: ARRIVED VIA AMB TO FT 1 WITH COMPLAINTS OF LEFT LOWER SHOULDER BLADE PAIN X2 WEEKS. NON INJURY. STATES HE HAS BEEN TAKING MOBIC BUT TODAY IT STARTED HURTING WORSE. Source of Information: Patient Exam Limitations: No Limitations History of Present Illness Date Seen by Provider: Apr 04, 2022 Time Seen by Provider: 16:30 Initial Comments Patient is a 37-year-old male who presents ED with left upper back pain. Back pain over the past 2 weeks. Woke up with pain. Does work a strenuous job but denies of any specific injury. Pain is worse with deep inspiration or movement. Gets relief when he does not take a deep breath or move his shoulders. Denies of any redness, swelling, bruising, shortness of breath, chest pain, abdominal pain vomiting or diarrhea. Did report a mild cough over the past few weeks with dry cough. Denies history of similar pain. Patient Went to his primary care physician was given Mobic with some improvement initially. Associate nasal congestion. Denies fever, headache, sore throat, chest pain, ear pain, neck pain, vomiting, diarrhea Allergies and Home Medications Allergies Coded Allergies: GURPREETANo Known Allergies (Unverified Allergy, Mild, 03/14/09) Patient Home Medication List Home Medication List Reviewed: Yes Azithromycin (Azithromycin) 250 Mg Tablet, 250 MG PO UD Prescribed by: JAVED SCHAEFER on 04/04/221717 Cyclobenzaprine HCl (Cyclobenzaprine HCl) 10 Mg Tablet, 10 MG PO TID PRN for MUSCLE SPASMS Prescribed by: JAVED SCHAEFER on 04/04/221717 Meloxicam (Meloxicam) 15 Mg Tablet, (Reported) Entered as Reported by: MONA DIAZ on 04/04/22 1619 Last Action: New Order Naproxen (Naproxen) 500 Mg Tablet, 500 MG PO Q12H Prescribed by: JAVED SCHAEFER on 04/04/22 171 Discontinued Medications Amoxicillin (Amoxicillin) 875 Mg Tablet, 875 MG PO BID Discontinued Reason: No Longer Taking Prescribed by: NAEL JEFF on 03/14/22 1909 Last Action: Discontinued Azithromycin (Azithromycin) 250 Mg Tablet, (Reported) Discontinued Reason: No Longer Taking Entered as Reported by: KOLTON FONTANA on 08/23/19103 Last Action: Discontinued Benzonatate (Tessalon Perles) 100 Mg Capsule, 1-2 TAB PO TID Discontinued Reason: No Longer Taking Prescribed by: NAEL JEFF on 08/23/19311 Last Action: Discontinued Cefdinir (Cefdinir) 300 Mg Capsule, 300 MG PO BID Discontinued Reason: No Longer Taking Prescribed by: NAEL JEFF on 08/23/19311 Last Action: Discontinued Naproxen (Naprosyn) 500 Mg Tablet, 500 MG PO BID Discontinued Reason: No Longer Taking Prescribed by: SIDRA ANGELES on 12/04/181923 Last Action: Discontinued Prednisone (Prednisone) 50 Mg Tab, (Reported) Discontinued Reason: No Longer Taking Entered as Reported by: KOLTON FONTANA on 08/23/19103 Last Action: Discontinued Prednisone (Prednisone) 20 Mg Tab, 40 MG PO DAILY Discontinued Reason: No Longer Taking Prescribed by: NAEL JEFF on 03/14/221908 Last Action: Discontinued Promethazine/Dextromethorphan (Promethazine-Dm Syrup) 473 Ml Syrup, (Reported) Discontinued Reason: No Longer Taking Entered as Reported by: KOLTON FONTANA on 08/23/19103 Last Action: Discontinued Propranolol HCl (Propranolol HCl) 40 Mg Tablet, (Reported) Discontinued Reason: No Longer Taking Entered as Reported by: KOLTON FONTANA on 08/23/19103 Last Action: Discontinued Sulfamethoxazole/Trimethoprim (Bactrim Ds Tablet) 1 Each Tablet, 1 EACH PO BID Discontinued Reason: No Longer Taking Prescribed by: NAEL JEFF on 02/24/21310 Last Action: Discontinued Review of Systems Constitutional: No chills, No diaphoresis, No malaise EENTM: No hearing loss, No blurred vision, No double vision Respiratory: cough; No dyspnea on exertion Cardiovascular: No chest pain, No edema Gastrointestinal: No abdominal pain, No diarrhea, No nausea, No vomiting Genitourinary: No decreased output, No discharge Musculoskeletal: back pain; No joint pain Skin: No change in color, No change in hair/nails All Other Systems Reviewed Negative Unless Noted: Yes Past Dkuztvp-Nbxrjx-Gbjzfz Hx Patient Social History Tobacco Use?: No Substance use?: No Alcohol Use?: No Immunizations Up To Date Tetanus Booster (TDap): Less than 5yrs Seasonal Allergies Seasonal Allergies: Yes Past Medical History Surgeries: No Respiratory: No Cardiac: Yes Hypertension Neurological: Yes (SEIZURES A CHILD) Headaches /Migraines Reproductive Disorders: No Genitourinary: No Gastrointestinal: No Musculoskeletal: No Endocrine: Yes (MORBIDLY OBESE--> 300 LBS. ON METFORMIN--DENIES BEING DIABETIC) HEENT: No Cancer: No Psychosocial: Yes ADD/ADHD, Anxiety, Bipolar, Depression Integumentary: No Blood Disorders: No Family Medical History Heart Disease, Cancer Physical Exam Vital Signs Vital Signs - First Documented 04/04/22 16:08 Temp 36.3 Pulse 84 Resp 16 B/P (MAP) 158/89 (112) Pulse Ox 98 O2 Delivery Room Air Capillary Refill : Less Than 3 Seconds Height, Weight, BMI Height: 5'6.00" Weight: 295lbs. oz. 133.243410rs; 53.00 BMI Method:Stated General Appearance: No Apparent Distress, WD/WN HEENT: PERRL/EOMI, TMs Normal, Normal ENT Inspection, Pharynx Normal Neck: Full Range of Motion, Normal Inspection, Non Tender, Supple Cardiovascular: Regular Rate, Rhythm, No Edema, No Gallop, No JVD Respiratory: Chest Non Tender, Lungs Clear, Normal Breath Sounds, No Accessory Muscle Use Gastrointestinal: Normal Bowel Sounds, No Organomegaly, No Pulsatile Mass, Non Tender Back: Other (Left lateral thoracic paraspinal muscle tenderness. No thoracic, cervical or lumbar midline tenderness) Extremity: Normal Capillary Refill, Normal Inspection, Normal Range of Motion, Non Tender Skin: Normal Color, Warm/Dry Progress/Results/Core Measures Results/Orders My Orders Orders - TEODORO JARA Chest Pa/Lat (2 View) (04/04/22 16:30) Ketorolac Injection (Toradol Injection) (04/04/22 16:30) Orphenadrine Inj (Ed Only) (Norflex Inje (04/04/22 16:30) Medications Given in ED Current Medications Medications Dose Ordered Sig/Ye Route Start Time Stop Time Status Last Admin Dose Admin Ketorolac Tromethamine 30 mg ONCE ONCE IM 04/04/22 16:30 04/04/22 16:31 DC 04/04/22 16:54 30 MG Orphenadrine Citrate 60 mg ONCE ONCE IM 04/04/22 16:30 04/04/22 16:31 DC 04/04/22 16:54 60 MG Vital Signs/I&O 04/04/22 16:08 Temp 36.3 Pulse 84 Resp 16 B/P (MAP) 158/89 (112) Pulse Ox 98 O2 Delivery Room Air Blood Pressure Mean: 112 Departure Communication (PCP) Patient with left upper back tenderness. No thoracic or lumbar or cervical midline tenderness. Afebrile. Reports a mild cough over the past 2 weeks or so. He states he had some nasal drainage. Refused COVID swab. He is afebrile. Patient does work a strenuous job. Possible injury at work. Pain appears to be worse with deep inspiration or movement. Due to pain with deep inspiration rule out pneumonia chest x-ray was ordered. Atypical type presentation. May be viral versus atypical bacterial infection. Will discharge with azithromycin. Discussed potential COVID and may need to get a outpatient COVID swab. Due to his current symptoms of pain with deep inspiration and movement which could be more musculoskeletal. Recommend anti-inflammatories, ice and heat. He has no neurological red flag findings. Patient denies of any chest pain abdominal pain vomiting, diarrhea. Does report discontinue cough with some mild shortness of breath. Patient is not hypoxic or tachycardic or recent travels or surgeries suggesting PE. No appreciation of leg swelling or current leg pain. If any worsening symptoms return back to ED for further evaluation Impression Primary Impression: Back pain Additional Impression: Upper respiratory infection Disposition: 01 HOME, SELF-CARE Condition: Stable Departure-Patient Inst. Decision time for Depature: 17:17 Referrals: [facility] (PCP/Family) Primary Care Physician Patient Instructions: Atypical Pneumonia (Mycoplasma and Viral) (DC), Back Muscle Strain (DC) Scripts Cyclobenzaprine HCl (Cyclobenzaprine HCl) 10 Mg Tablet 10 MG PO TID PRN for MUSCLE SPASMS, #12 TAB Prov: TEODORO JARA 04/04/22 Naproxen (Naproxen) 500 Mg Tablet 500 MG PO Q12H for 10 Days, #20 TAB Prov: TEODORO JARA 04/04/22 Azithromycin (Azithromycin) 250 Mg Tablet 250 MG PO UD, #6 TAB TAKE 2 TABLETS ON DAY ONE THEN TAKE 1 TABLET DAILY FOR FOUR MORE DAYS Prov: TEODORO JARA 04/04/22 Work/School Note: Work Release Form Date Seen in the Emergency Department: Apr 04, 2022 Return to Work: Apr 07, 2022 TEODORO JARA Apr 04, 2022 16:32
--- NOTE | 2022-04-04 16:51 | Diagnostic Imaging Report ---
EXAMINATION: Chest 2 view HISTORY: left sided rib pain, cough COMPARISON: 01/17/2022 FINDINGS: Heart size and pulmonary vasculature are normal. There are mild interstitial opacities in the lung bases with low lung volumes. No pleural effusion or pneumothorax. The osseous structures are intact. IMPRESSION: 1. Mild interstitial opacities within the lung bases which can be seen with atelectasis or atypical infection. Dictated by: Dictated on workstation # [id number]
[2022-04-04] MEDS ORDERED: NAPR-915 PO (17:18)
[2022-04-04] MEDS ORDERED: CYCL10TA25 PO (17:18)
[2022-04-04] MEDS ORDERED: AZIT250T12 PO (17:18)
== END 2022-04-04 17:28 | disposition home or self-care (01) ==
LOC: EDUNIT# 15:46 → ER 15:49
DX: M54.2 Cervicalgia (principal); M54.50 Low back pain, unspecified; J06.9 Acute upper respiratory infection, unspecified; E66.01 Morbid (severe) obesity due to excess calories; Z68.43 Body mass index [BMI] 50.0-59.9, adult; Z28.310 Unvaccinated for COVID-19
CPT/HCPCS: 71046

== ENCOUNTER 2022-11-01 01:56 | Emergency (ER) | payer BC ==
[~2022-11-01] VITALS: Ht 167 cm; Wt 137.0 kg
[~2022-11-01 01:56] MED LIST changes: +AZIT250T12 PO; +MELO15TA39; +NAPR-915 PO
[2022-11-01 02:06] VITALS: BP 154/105
[2022-11-01] MEDS ORDERED: PROP40TA5 (02:12)
[2022-11-01] MEDS ORDERED: LORA10TA7 (02:12)
[2022-11-01] MEDS ORDERED: ATOR10TA PO (02:12)
[2022-11-01] MEDS ORDERED: RT-ALBUINH INH (02:13)
--- NOTE | 2022-11-01 02:14 | ED Dyspnea ---
General Stated Complaint: CONGESTION,SOB,RT EAR PAIN Source of Information: Patient Exam Limitations: No Limitations History of Present Illness Date Seen by Provider: Nov 01, 2022 Time Seen by Provider: 02:02 Initial Comments 37-year-old male presents to the emergency department today for shortness of breath. Symptoms started 3 days ago and have been persistent. He has a cough productive of some mild phlegm. No fevers or chills. No chest pain. Believes he may have been wheezing earlier in the day. He is a non-smoker. No history of COPD, asthma. Several sick contacts at home and work. Allergies and Home Medications Allergies Coded Allergies: NKANo Known Allergies (Unverified Allergy, Mild, 03/14/09) Patient Home Medication List Home Medication List Reviewed: Yes Azithromycin (Azithromycin) 250 Mg Tablet, 250 MG PO UD Prescribed by: JAVED SCHAEFER on 04/04/221717 Cyclobenzaprine HCl (Cyclobenzaprine HCl) 10 Mg Tablet, 10 MG PO TID PRN for MUSCLE SPASMS Prescribed by: JAVED SCHAEFER on 04/04/221717 Meloxicam (Meloxicam) 15 Mg Tablet, (Reported) Entered as Reported by: MONA DIAZ on 04/04/22 161 Naproxen (Naproxen) 500 Mg Tablet, 500 MG PO Q12H Prescribed by: JAVED SCHAEFER on 04/04/221717 Review of Systems Review of Systems Constitutional: no symptoms reported EENTM: no symptoms reported Respiratory: short of breath, wheezing Cardiovascular: no symptoms reported Gastrointestinal: no symptoms reported Genitourinary: no symptoms reported Musculoskeletal: no symptoms reported Skin: no symptoms reported Psychiatric/Neurological: No Symptoms Reported Endocrine: No Symptoms Reported Hematologic/Lymphatic: No Symptoms Reported Past Rjtzusg-Rsrwiv-Rljtrl Hx Patient Social History Tobacco Use?: No Use of E-Cig and/or Vaping dev: No Substance use?: No Alcohol Use?: No Immunizations Up To Date Tetanus Booster (TDap): Less than 5yrs Seasonal Allergies Seasonal Allergies: Yes Past Medical History Surgeries: No Respiratory: No Cardiac: Yes Hypertension Neurological: Yes (SEIZURES A CHILD) Headaches /Migraines Reproductive Disorders: No Genitourinary: No Gastrointestinal: No Musculoskeletal: No Endocrine: Yes (MORBIDLY OBESE--> 300 LBS. ON METFORMIN--DENIES BEING DIABETIC) HEENT: No Cancer: No Psychosocial: Yes ADD/ADHD, Anxiety, Bipolar, Depression Integumentary: No Blood Disorders: No Family Medical History Reviewed Nursing Family Hx Heart Disease, Cancer Physical Exam Vital Signs Capillary Refill : Height, Weight, BMI Height: 5'6.00" Weight: 295lbs. oz. 133.954980qt; 53.00 BMI Method:Stated General Appearance: No Apparent Distress, WD/WN HEENT: PERRL/EOMI, TMs Normal, Normal ENT Inspection, Pharynx Normal Neck: Full Range of Motion, Non Tender, Supple Respiratory: Chest Non Tender, Lungs Clear, Normal Breath Sounds, No Accessory Muscle Use, No Respiratory Distress Cardiovascular: Regular Rate, Rhythm, No Edema, No Murmur, Normal Peripheral Pulses Gastrointestinal: Normal Bowel Sounds, No Organomegaly, No Pulsatile Mass, Non Tender, Soft Extremity: Normal Capillary Refill, Normal Inspection, Normal Range of Motion, Non Tender, No Calf Tenderness, No Pedal Edema Neurologic/Psychiatric: Alert, Oriented x3, No Motor/Sensory Deficits Skin: Normal Color, Warm/Dry Departure Communication (Admissions) Patient is hemodynamically stable. He has normal vital signs. His lung nath are completely clear anteriorly and posteriorly. No wheezing. No evidence for pneumonia. Equal breath sounds, no evidence of for pneumothorax. No risk factors for PE. Has had appointment for treatment for influenza so will not test. He is low risk, would be a candidate for Paxlovid if he had COVID. Discussed testing versus conservative management. He opts for conservative management at this time. Impression Primary Impression: Upper respiratory infection Qualified Codes: J06.9 - Acute upper respiratory infection, unspecified Disposition: HOME, SELF-CARE Condition: Stable Departure-Patient Inst. [facility] ([facility]Family) Primary Care Physician Patient Instructions: Viral Upper Respiratory Infection, Adult (DC) Add. Discharge Instructions: Use the inhaler as needed for wheezing or shortness of breath. Increase your fluids at home and rest. Return to the emergency department for any severe concerns. Keep your doctors appointment as scheduled later this week. Scripts Albuterol Sulfate (VENTOLIN HFA) 1 Puff Puff 2 PUFF INH Q4H for 7 Days, #1 EA 1 PUFF = 90 MCG Prov: SINDHU MOSES DO 11/01/22 SINDHU MOSES DO Nov 01, 2022 02:14
== END 2022-11-01 02:16 | disposition home or self-care (01) ==
LOC: EDUNIT# 01:56 → ER 02:00
DX: J06.9 Acute upper respiratory infection, unspecified (principal); E66.01 Morbid (severe) obesity due to excess calories; Z68.43 Body mass index [BMI] 50.0-59.9, adult; Z28.310 Unvaccinated for COVID-19
CPT/HCPCS: 99282

== ENCOUNTER 2022-12-18 14:13 | Emergency (ER) | payer BC ==
[~2022-12-18] VITALS: Ht 167 cm; Wt 151.0 kg
[~2022-12-18 14:13] MED LIST changes: +ATOR10TA PO; +LORA10TA7; +RT-ALBUINH INH
--- NOTE | 2022-12-18 15:24 | ED Upper Extremity ---
General Chief Complaint: Upper Extremity Stated Complaint: RT RING FINGER INJ | INJ AT HOME Nursing Triage Note: PT STATES HE HIT HIS FINGER ON SOMETHING THIS MORNING WHILE CHASING DOG, CC OF RT HAND 4TH FINGER PAIN Source: patient Exam Limitations: no limitations History of Present Illness Date Seen by Provider: Dec 18, 2022 Time Seen by Provider: 15:21 Initial Comments Patient is a 37-year-old male who presents ED with right hand pain. Pain is located across the right ring finger. Patient states around 130 hit his hand against the kitchen countertop. Report pain with flexion. No obvious bone deformity. Denies any obvious swelling or bruising. Radiating pain up into the right wrist. Denies of any fever, chills, nausea, vomiting, diarrhea. No history of previous injury. Denies taking thing for pain. Allergies and Home Medications Allergies Coded Allergies: NKANo Known Allergies (Unverified Allergy, Mild, 03/14/09) Patient Home Medication List Home Medication List Reviewed: Yes Albuterol Sulfate (Ventolin Hfa) 1 Puff Puff, 2 PUFF INH Q4H Prescribed by: SINDHU MOSES MD on 11/01/22212 Atorvastatin Calcium (Lipitor) 10 Mg Tablet, Unknown Dose PO HS, (Reported) Entered as Reported by: KOLTON FONTANA on 11/01/22211 Loratadine (Loratadine) 10 Mg Tablet, (Reported) Entered as Reported by: KOLTON FONTANA on 11/01/22211 Propranolol HCl (Propranolol HCl) 40 Mg Tablet, (Reported) Entered as Reported by: KOLTON FONTANA on 11/01/22211 Review of Systems Constitutional: No chills, No diaphoresis, No fever, No malaise, No weakness EENTM: No ear pain, No blurred vision, No double vision Respiratory: No cough, No dyspnea on exertion Cardiovascular: No chest pain Gastrointestinal: No abdominal pain, No diarrhea, No nausea, No vomiting Genitourinary: No decreased output, No discharge Musculoskeletal: No back pain; joint pain, joint swelling Skin: No change in color All Other Systems Reviewed Negative Unless Noted: Yes Past Igvjlsl-Avmbou-Tsbljb Hx Patient Social History Tobacco Use?: No Substance use?: No Alcohol Use?: No Immunizations Up To Date Tetanus Booster (TDap): Less than 5yrs First/Initial COVID19 Vaccinat: na Second COVID19 Vaccination Tashi: na Third COVID19 Vaccination Date: na Seasonal Allergies Seasonal Allergies: Yes Past Medical History Surgery/Hospitalization HX: htn, adhd, anxiety/depression, Surgeries: No Respiratory: No Cardiac: Yes Hypertension Neurological: Yes (SEIZURES A CHILD) Headaches /Migraines Reproductive Disorders: No Genitourinary: No Gastrointestinal: No Musculoskeletal: No Endocrine: Yes (MORBIDLY OBESE--> 300 LBS. ON METFORMIN--DENIES BEING DIABETIC) HEENT: No Cancer: No Psychosocial: Yes ADD/ADHD, Anxiety, Bipolar, Depression Integumentary: No Blood Disorders: No Family Medical History Heart Disease, Cancer Physical Exam Vital Signs Vital Signs - First Documented 12/18/22 14:38 Temp 37.1 Pulse 86 Resp 20 B/P (MAP) 163/85 (111) Pulse Ox 97 O2 Delivery Room Air Capillary Refill : Less Than 3 Seconds Height, Weight, BMI Height: 5'6.00" Weight: 295lbs. oz. 133.721139ag; 54.00 BMI Method:Stated General Appearance: WD/WN, no apparent distress HEENT: PERRL/EOMI, normal ENT inspection, TMs normal, pharynx normal Neck: non-tender, full range of motion, supple, normal inspection Cardiovascular: regular rate, rhythm, no edema, no gallop, no JVD Respiratory: chest non-tender, lungs clear, no respiratory distress Gastrointestinal: normal bowel sounds, non tender, soft, no organomegaly Back: normal inspection, no CVA tenderness, no vertebral tenderness Shoulder: normal inspection, no evidence of injury Elbow/Forearm: normal inspection, non-tender, Right Wrist: Yes normal inspection, Yes normal ROM Hand: Right, bone tenderness (Right proximal ring finger tenderness, right distal phalanx tenderness. Normal flexion extension. No obvious bone deformity. No swelling, erythema or ecchymosis.) Neurologic/Psychiatric: contracting manager II-XII nml as tested, no motor/sensory deficits, alert, normal mood/affect, oriented x 3 Skin: normal color, warm/dry Progress/Results/Core Measures Results/Orders My Orders Orders - TEODORO JARA Hand, Right, 3 Views (12/18/22 15:20) Vital Signs/I&O 12/18/22 12/18/22 14:38 16:07 Temp 37.1 Pulse 86 86 Resp 20 20 B/P (MAP) 163/85 (111) 163/85 Pulse Ox 97 97 O2 Delivery Room Air Room Air Blood Pressure Mean: 111 Departure Communication (PCP) X-ray of the right hand did not show any evidence of acute fracture. No obvious swelling, bruising or redness. Normal active range of motion. X-ray did not note a possible foreign body in the skin. No area of bleeding suggesting pot ential site of entrance. Patient refused anything for pain. Ice was applied. Discussed sandy tape, ice and anti-inflammatories. Orthopedic follow-up in 7 to 10 days if pain progress. Does report some mild numbness and tingling which likely secondary to the injury. Return precaution were discussed Impression Primary Impression: Hand pain Disposition: 01 HOME, SELF-CARE Condition: Stable Departure-Patient Inst. Decision time for Depature: 16:03 Referrals: CAROLINA ABEBE MD, JOHN D MD (PCP/Family) Primary Care Physician Patient Instructions: Hand Pain Add. Discharge Instructions: If continue having pain recommend following up with outpatient orthopedic All discharge instructions reviewed with patient and/or family. Voiced understanding. Work/School Note: Work Release Form Date Seen in the Emergency Department: Dec 18, 2022 Return to Work: Dec 20, 2022 TEODORO JARA Dec 18, 2022 15:24
--- NOTE | 2022-12-18 15:54 | Diagnostic Imaging Report ---
HISTORY: Right ring finger pain. TECHNIQUE: Three views of the right hand. COMPARISON: None. FINDINGS: No acute fracture or dislocation is seen in the right hand. Alignment is normal. Joint spaces are preserved. There is a small hyperdensity in the soft tissues medial to the fifth metacarpal measuring 5 mm in size. No cortical erosions are seen. IMPRESSION: 1. No acute osseous abnormality is seen in the right hand. 2. Linear hyperdensity in the medial soft tissues, could represent a foreign body or overlying debris. Dictated by: Dictated on workstation # [id number]
[2022-12-18 16:07] VITALS: BP 163/85
== END 2022-12-18 16:17 | disposition home or self-care (01) ==
LOC: EDUNIT# 14:13 → ER 14:15
DX: M79.644 Pain in right finger(s) (principal); E66.01 Morbid (severe) obesity due to excess calories; Z68.43 Body mass index [BMI] 50.0-59.9, adult; Z28.310 Unvaccinated for COVID-19; W22.09XA Striking against other stationary object, initial encounter; Y92.000 Kitchen of unspecified non-institutional (private) residence as the place of occurrence of the external cause
CPT/HCPCS: 73130

== ENCOUNTER → 2023-04-24 | Outpatient (CLI) | payer BC ==
[~2023-04-24] MED LIST changes: -D-ME473S11; +PROM473S15; +TOPI-241 PO; -TOPI50TA13 PO
--- NOTE | 2023-04-24 11:36 | Diagnostic Imaging Report ---
INDICATION: N50.9 -left testicular mass TECHNIQUE: Real-time grayscale sonographic imaging and color vascular evaluation of the scrotum. CORRELATION STUDY: None FINDINGS: RIGHT TESTICLE: 4.4 x 2.2 x 3.2 cm. LEFT TESTICLE: 4.3 x 3.2 x 2.5 cm. The testicles are in normal location and demonstrate homogeneous echotexture. There is vascular flow to the testicles. The epididymides appear unremarkable. Small bilateral hydroceles. No significant varicoceles. IMPRESSION: 1. Unremarkable scrotal ultrasound examination. Dictated by: Dictated on workstation # [id number]
== END ==
LOC: RAD 09:15
PROVIDERS: ATTEND Internal Medicine
DX: N50.9 Disorder of male genital organs, unspecified (principal)
CPT/HCPCS: 76870